=== PATIENT | female | born 1950 | race Caucasian/White ===

== ENCOUNTER 2024-07-17 23:06 | Emergency (ER) | payer MEDICARE, SELFPAY ==
[2024-07-17 23:10] VITALS: BP 122/48
[2024-07-17 23:24] VITALS: BP 122/48
[2024-07-18 00:25] LABS: ALT (SGPT) 59 U/L (0-35); AST (SGOT) 50 U/L (14-36); Albumin 3.9 g/dl (3.5-5.0); Alkaline Phosphatase 162 U/L (38-126); Blood Urea Nitrogen 46 mg/dl (7-17); Calcium 9.8 mg/dl (8.4-10.2); Carbon Dioxide 25 mmol/L (22-30); Chloride 102 mmol/L (98-107); Glucose 100 mg/dl (70-99); Potassium 4.1 mmol/L (3.5-5.1); Sodium 141 mmol/L (135-145); Total Bilirubin 0.8 mg/dl (0.2-1.3); Total Protein 6.4 g/dl (6.3-8.2); eGFR > 60.00
[2024-07-18 00:33] LABS: % Basophils 0.5 % (0-2); % Eosinophils 8.1 % (0-6); % Immature Granulocytes 0.7 % (0-0.5); % Lymphocytes 6.8 % (20.5-51.1); % Monocytes 9.3 % (1.7-9.3); % Neutrophils 74.6 % (42.2-75.2); Absolute Basophils 0.1 10^3/uL (0-0.2); Absolute Eosinophils 0.9 10^3/uL (0-0.7); Absolute Immature Granulocytes 0.1 10^3/uL (0-0.05); Absolute Lymphocytes 0.8 10^3/uL (1.2-3.4); Absolute Neutrophils 8.3 10^3/uL (1.4-6.5); Hematocrit 33.3 % (37.0-47.0); Hemoglobin 10.9 g/dL (12.0-16.0); Mean Corp Hgb Conc. 32.7 g/dL (33.0-37.0); Mean Corpuscular Hgb 29.9 pg (27.0-31.0); Mean Corpuscular Volume 91.5 fL (81.0-99.0); Nucleated Red Blood Cells % 0 %; Platelet Count 262 10^3/uL (130-400); Red Blood Cell Count 3.64 10^6/uL (4.20-5.40); Red Cell Dist. Width 14.6 % (11.5-14.5); White Blood Cell Count 11.2 10^3/uL (4.8-10.8)
--- NOTE | 2024-07-18 00:43 | ED.GENMED ---
History of Present Illness
General
Chief Complaint: Breathing Problem
Source: patient and family (Son)
Exam Limitations: other (Only able to mouth words)
Time Seen by Provider: 07/17/24 23:49
History of Present Illness
History of Present Illness:
This is a 73 year old female that is brought in by ambulance from [facility] for SOB and anxiety. Son states that the patient was just transferred there today from [place] or [place] after a laryngectomy. States that he meet her there at
10:30am and stayed with her to 4:30pm. States that he left and she was OK. States that she is in a room with 3 other people. States that she then called him at 8:30pm and faced timed her. States that she was concerned about the care and was scarred.
States that he feels that she is dehydrated and that in the past weeks her cognition has changed. Patient states that she is nauseated and has abd pain, vomiting once this morning and diarrhea. States that she feels SOB. Denies any fever, chills,
chest pain, headache, dizziness, urinary burning.
Past History
Past History
ED Past Medical History: Arrthythmia (Atrial fib), COPD and Other (Pancreatic insufficiency, Decreased bariatric motility, )
ED Past Surgical History: Appendectomy, Cardiac (Pacemaker) and Other (Laryngectomy, vascular stent ?, J-G tube, laryngectomy neck fistula)
Social History
Tobacco: Former smoker
Alcohol: Occasional
Personal:
Living: halfway
Review of Systems
Review of Systems
All Other Systems: ROS reviewed and negative except as documented in HPI and ROS
Constitutional: Reports no symptoms; Denies fever or chills
EENT: Reports no symptoms
Respiratory: Reports trouble breathing; Denies cough
Cardiac: Denies chest pain
ABD/GI: Reports abdominal pain, nausea, vomiting and diarrhea
: Reports no symptoms; Denies dysuria, frequency or urgency
Musculoskeletal: Reports no symptoms
Skin: Reports no symptoms
Neurological: Reports other (Son feels change in cognition); Denies dizzy or headache
Psychiatric: Reports no symptoms
Phy Exam
General Physical Exam
General Presentation: no apparent distress
General age: appears stated age
General Skin: warm and dry
General Habitus: elderly
General Mental: alert
General Hydration: dry mucous membranes
ENT Exam
ENT Exam: TM's normal, neck supple and tracheostomy
Eye Exam
Eye Exam: EOMI
Cardiovascular Exam
Cardiovascular Exam: regular rate/rhythm, no edema and normal peripheral pulses
Pulmonary Exam
Pulmonary Exam: no respiratory distress, no rales, chest non tender, no crackles, no rhonchi, no wheezing and decreased breath sounds
Gastrointestinal Exam
Gastrointestinal Exam: normal bowel sounds, soft, no organomegaly, no pulsatile mass, non distended and tender (Slight upper abd tenderness with palpation)
Musculoskeletal Exam
Musculoskeletal Exam: full ROM and no edema
Skin Exam
Skin Exam: normal color, warm/dry, no rash and no petechia
Psychiatric Exam
Psychiatric Exam: normal mood/affect
Scores
Heart Failure Risk
Heart Failure Risk Score: Not Applicable
Course
Orders/Labs/Results
Orders:
Orders
07/18/24 00:01
EKG [Electrocardiogram (*1)] Urgent
Reason for Study: Fatigue / Weakness
07/18/24 00:02
EKG- Treatment ONCE
07/18/24 00:04
Complete Blood Count/With Diff Urgent
Comprehensive Metabolic Panel Urgent
07/18/24 00:25
CT Head W/o Iv Contrast Urgent
Comment:
Reason For Exam: COGNITIVE CHANGES,
0.9% Sodium Chloride 1000 ml [Nss] 1,000 ml IV BOLUS
07/18/24 00:26
Ondansetron Injectable [Zofran] 4 mg IV NOW STA
CR Chest - 2 Views Urgent
Comment:
Reason For Exam: sob
07/18/24 02:14
Urinalysis Reflex To Culture Urgent
Date Specimen was Collected: 07/18/24
Time Specimen was Collected: 02:13
Urine Microscopic Reflex Cult Urgent
Urine Culture Urgent
DALE Source: U
Specimen Description:
Date Specimen was Collected: 07/18/24
Time Specimen was Collected: 02:13
Abnormal Lab Results
07/18/24 07/18/24
00:04 02:14
WBC 11.2 H 10^3/uL
(4.8-10.8)
RBC 3.64 L 10^6/uL
(4.20-5.40)
Hgb 10.9 L g/dL
(12.0-16.0)
Hct 33.3 L %
(37.0-47.0)
MCHC 32.7 L g/dL
(33.0-37.0)
RDW 14.6 H %
(11.5-14.5)
MPV 13.0 H fL
(7.4-10.4)
Abs Immat Gran (auto) 0.1 H 10^3/uL
(0-0.05)
Absolute Neuts (auto) 8.3 H 10^3/uL
(1.4-6.5)
Absolute Lymphs (auto) 0.8 L 10^3/uL
(1.2-3.4)
Absolute Monos (auto) 1.0 H 10^3/uL
(0.1-0.6)
Absolute Eos (auto) 0.9 H 10^3/uL
(0-0.7)
Immature Gran % 0.7 H %
(0-0.5)
Lymphocytes % 6.8 L %
(20.5-51.1)
Eosinophils % 8.1 H %
(0-6)
BUN 46 H mg/dl
(7-17)
Glucose 100 H mg/dl
(70-99)
AST 50 H U/L
(14-36)
ALT 59 H U/L
(0-35)
Alkaline Phosphatase 162 H U/L
(38-126)
Urine Bilirubin 1+ A
(Negative)
Leukocyte Esterase Rfl Trace A
(Negative)
Urine RBC 3-6 A /HPF
(0-2)
Urine Bacteria (Reflex) Moderate A
(Negative)
07/18/24 00:04
07/18/24 00:04
Slight Leukocytosis, H/H low. Dehydration. Glucose nonfasting. AST/ALT mildly elevated. Alk phos elevation. Urine negative.
Vital Signs
Initial and Last Documented VS:
Initial Vital Signs
Temp Pulse Resp BP Pulse Ox
98.9 F 82 20 122/48 96
07/17/24 23:10 07/17/24 23:10 07/17/24 23:10 07/17/24 23:10 07/17/24 23:10
Last Documented Vital Signs
Temp Pulse Resp BP Pulse Ox
98.9 F 83 19 117/48 95
07/17/24 23:10 07/18/24 02:45 07/18/24 02:45 07/18/24 02:00 07/18/24 02:00
B[employer] And Blocker Aid Labor consulted with Physician
[employer] consulted with physician?: Yes
Name of Physician Consulted: Dr. Toledo
MDM/Problems Addressed
Differential Diagnosis Includes:
Anxiety, Dehydration.
MDM/Problems Addressed:
This is a 73 year old female that comes in with c/o being scarred and dehydrated. Son reviewed recent history and that patient was just place today at [facility]. Patient felt that she did not trust them an was anxious and SOB.
Will check labs, CT head due to concern for Cognitive changes, chest x-ray and give IV fluids.
Back into see patient and son. Explained that her blood work shows dehydration. Patient was given IV fluids. patient CT is negative for any acute process. Urine is negative for infection. Chest x-ray is questionable for a right upper lobe Pneumonia.
Will give patient Doxycycline and have patient follow up with the computer support specialist. Patient to return with any concerns.
Chronic conditions affecting care: Other (G-J tube, bariatric motility issues, )
Acute Exacerbation and/or Progression of Chronic Illness: Other (G-J tube, bariatric motility issues,)
*Radiology
Radiology exam reviewed: preliminary read by ED provider (Chest- Questionable right upper lobe Infiltration. ), radiology read reviewed (CT head night hawk-No acute intracranial fiindings. No evidence of intracranial hemorrhage, mass effect, midline
shift, or extra-axial fluid collection. Cerebral volume loss. There are periventricular and deep white matter hypodensities which are nonspecific but likely related to chronic ) and other (CT cont- chrnic microvascular ischemic disease.
Atherosclerotic vascular disease. Opacified right maxillary sinus. )
*Pulse Oximetry
Patient hypoxic: no
*EKG
Interpreted by ED Provider?: Yes
Heart Rate: 84
Rate: normal
Rhythm: sinus (Questionable WPW , There is a slurred upstroke of QRS, Questionable QRU width, There is a short AL interval. )
[place]: normal axis
Interval: normal interval
QRS Pattern: normal QRS
Ischemia: no ischemia
*Dessert Cup Machine Feeder Interpretation
Rate: normal
Heart Rate: 83
Rhythm: sinus
*Critical Care Note
Total Time (30-74mins, 75-104mins- exclusive of procedures): Not Applicable
ED Attending Note
-
Portions of this chart may have been created with voice recognition software.� Occasional wrong word or��sound alike� substitutions may have occurred due to the inherent limitations of voice recognition software.
Discharge Plan
Departure
Patient Disposition: [facility]/SNF
Date of Disposition: 07/18/24
Time of Disposition: 03:25
Patient with high blood pressure during this ER visit?: No
Condition: Good
Covid-19: Not Applicable
Discharge Problem:
Anxiety, questionable right upper lobe Pneumonia
Instructions: Pneumonia, Adult (DC), Anxiety, Adult ED
Prescriptions:
New
doxycycline hyclate 100 mg tablet
100 mg PO BID Qty: 13 0RF
Rx Instructions:
Dissolve in 20ml water and let sit for 10min and crush
No Action
acetaminophen 325 mg Tablet
650 mg PO Q6H PRN (Reason: temp > 101 or pain)
albuterol sulfate 2.5 mg /3 mL (0.083 %) Solution For Nebulization
2.5 mg INHALATION Q4H PRN (Reason: wheezing)
albuterol sulfate 2.5 mg /3 mL (0.083 %) Solution For Nebulization
2.5 mg INHALATION QID
allopurinol 100 mg Tablet
100 mg DAILY
bisacodyl 10 mg Suppository
10 mg AL DAILY PRN (Reason: constipation if no results from mom)
budesonide 0.5 mg/2 mL Suspension For Nebulization
0.5 mg INHALATION Q12H
Activity Restrictions/Additional Instructions:
As discussed, your blood work shows that you are dehydrated. You have been given IV fluids here. Please increase patient's water intake daily. Her white blood cell count is slightly elevated. There is a question of a right upper lobe pneumonia but
there is not consolidation. Patient has been given Doxycycline to cover this with her first dose being given here and a prescription has been sent with patient. Please place the table in 20ml water and let sit for 10 min and then crush. Follow up
with the consumer relations specialist for further evaluation. IF PATIENT HAS FEVER, HYPOXIA OR ANY OTHER CONCERNS PLEASE RETURN TO THE EMERGENCY ROOM .
Interventions
Interventions:
*Risk Screen - Suicide Last Done: 07/17/24 23:20
*General Assessment Last Done: 07/17/24 23:10
*Neglect/Abuse Screening Last Done: 07/17/24 23:10
ED- Fall Risk Assessment Last Done: 07/17/24 23:10
*ED COVID-19 Vaccine History Last Done: 07/17/24 23:10
ED- Cardiac Assessment Last Done: 07/17/24 23:20
ED- Pulmonary Assessment Last Done: 07/17/24 23:20
Discharge Date and Time
Print Language: MACEDONIAN
[2024-07-18 01:05] VITALS: BP 111/68
[2024-07-18] MEDS: NSS 1000 IV (01:10)
[2024-07-18] MEDS: ZOFRAN 4 MG IV (01:15)
[2024-07-18 02:00] VITALS: BP 117/48
[2024-07-18 02:22] LABS: Urine Albumin Negative (Neg - Trace); Urine Bilirubin 1+ (Negative); Urine Character Clear (Clear); Urine Color Yellow; Urine Glucose Negative (Negative); Urine Ketone Negative (Negative); Urine Leukocyte Trace (Negative); Urine Nitrite Negative (Negative); Urine Occult Blood Negative (Negative); Urine Urobilinogen Negative (Neg - 1+)
[2024-07-18 03:00] VITALS: BP 124/45
[2024-07-18 03:14] LABS: Urine Hyaline Cast >15 /LPF (0-2); Urine Squamous Cell >30 /LPF (Few)
[2024-07-18 03:15] LABS: Urine Bacteria Moderate (Negative)
[2024-07-18 04:40] VITALS: BP 112/52
[2024-07-18] MEDS: VIBRAMYCIN 100 MG TUBE (04:50)
== END 2024-07-18 04:45 ==
LOC: EMR 23:06
PROVIDERS: Clinical Nurse Specialist Family Health; EMERGENCY PHYSICIAN Emergency Medicine; FAMILY PHYSICIAN Internal Medicine
DX: F41.9 Anxiety disorder, unspecified (principal); R06.02 Shortness of breath; E86.0 Dehydration
CPT/HCPCS: 99285; 96374; 96361; 70450; 71046; 80053; 81003; 81015; 85025; 87086; 93005

== ENCOUNTER 2024-10-14 12:02 | Inpatient (IN) | payer MEDICARE, OTHER, SELFPAY ==
[2024-10-14] VITALS (17 sets, daily range): BP systolic 106–132; BP diastolic 44–108
--- NOTE | 2024-10-14 07:44 | ED.GENMED ---
History of Present Illness
<KELLIE Rudolph - Last Filed: 10/14/24 13:15>
General
Chief Complaint: Breathing Problem
Source: patient
Exam Limitations: none
Time Seen by Provider: 10/14/24 07:38
Nursing documentation reviewed up to this point in time: agreed with
History of Present Illness
History of Present Illness:
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 She communicates via an iPad and has a tracheostomy. She reports she was able to
swallow her pills drink and eat however 2 days ago she started to have difficulty doing so. She also feels some shortness of breath when she lays down. She reports she was up all last night because of symptoms. Also she has been having some
bloody sputum from her tracheostomy site.
She did not have anything get stuck while eating or drinking and denies any choking episodes. She is not short of breath now. But she does feel like it is harder to swallow.
She is followed by the [facility] Dr. Gianluca Mckeon is her surgeon. She last had radiation 3 weeks ago and completed treatment.
Past History
<KELLIE Rudolph - Last Filed: 10/14/24 13:15>
Past History
ED Past Medical History: Arrthythmia (Atrial fib), COPD and Other (Pancreatic insufficiency, Decreased bariatric motility, )
ED Past Surgical History: Appendectomy, Cardiac (Pacemaker) and Other (Laryngectomy, vascular stent ?, J-G tube, laryngectomy neck fistula)
Social History
Tobacco: Former smoker
Alcohol: Occasional
Personal:
Living: senior living
Phy Exam
<KELLIE Rudolph - Last Filed: 10/14/24 13:15>
General Physical Exam
General Presentation: no apparent distress
General age: appears stated age
General Skin: warm and dry
General Habitus: normal
General Mental: alert
General Hydration: appears well hydrated
ENT Exam
ENT Exam: tracheostomy (Open tracheostomy stoma with small Linder dried blood around stoma)
Cardiovascular Exam
Cardiovascular Exam: regular rate/rhythm, no murmur and normal peripheral pulses
Pulmonary Exam
Pulmonary Exam: lungs clear and no respiratory distress
Neurological Exam
Neurological Exam: alert and oriented x3
Musculoskeletal Exam
Musculoskeletal Exam: full ROM
Skin Exam
Skin Exam: normal color and warm/dry
Psychiatric Exam
Psychiatric Exam: normal mood/affect
Scores
<KELLIE Rudolph - Last Filed: 10/14/24 13:15>
Heart Failure Risk
Heart Failure Risk Score: Not Applicable
Course
<KELLIE Rudolph - Last Filed: 10/14/24 13:15>
Orders/Labs/Results
Orders:
Orders
10/14/24 07:44
Electrocardiogram (*1) Urgent
Reason for Study: Shortness of Breath
EKG- Treatment ONCE
10/14/24 07:51
Complete Blood Count/With Diff Urgent
Comprehensive Metabolic Panel Urgent
NT-proBNP Urgent
Troponin I Urgent
10/14/24 08:22
Chest [CR Chest - 2 Views ] Urgent
Comment:
Reason For Exam: dyspahgia
10/14/24 08:23
Neck Soft Tissue [CR Soft Tissue Neck ] Urgent
Comment:
Reason For Exam: dysphaia
10/14/24 09:13
Dexamethasone Sod Phosphate [Decadron] 10 mg IV NOW STA
10/14/24 09:33
LevoFLOXacin 500 MG/100 ML [Levaquin] 500 mg in 100 ml IV NOW
10/14/24 09:34
Albuterol Nebs [Ventolin Nebules] 2.5 mg INH R NOW STA
10/14/24 09:40
COVID-19 Antigen Urgent
Source: Nasal Swab
Influenza A+B Rapid Molecular Urgent
DALE Source: Nasal Swab
Specimen Description:
10/14/24 11:42
Admit/Transfer Patient As Directed
Co-Sign Provider:
Level of Care: Inpatient admission
Assign to:: Telemetry
Physician / Group: raymon toscano
Diagnosis: PNA, dysphagia
Reason for Telemetry: Medication for Arrhythmia
Date to Stop Telemetry: 10/16/24
Time to Stop Telemetry: 11:00
Reason for Hospitalization: PNA, dysphagia
Expected length of stay greater than two midnights?: Yes
ELOS- Estimated Length of Stay in days: 2
I certify the patient meets the requirements for IP care: Yes
MetroNIDAZOLE 500 MG/100 ML [Flagyl 500 mg] 100 ml IV NOW
10/14/24 11:43
PRN Pain Medication Management As Directed
May give lesser potent ordered pain med per pt: Yes
preference::
Protocol:: Medication orders for pain may be administered in a
manner that supports deferring to patient preference
when the pt is:
- Requesting an ordered lesser potent pain medication.
Least to most potent pain medications are defined
as: acetaminophen < NSAID < tramadol < opioids
(morphine, oxycodone, hydromorphone).
- Requesting a lesser dose of the same medication IF
ORDERED.
- Requesting a less intrusive route of administration
if both routes are prescribed by the provider (PO <
IV).
10/14/24 11:44
Code Status As Directed
Resuscitation Status: Do not resuscitate
Reached after discussion with pt or family/Healthcare POA: Yes
10/14/24 11:46
DNR Bracelet Application ONCE
10/16/24 11:00
DC Protocol for Telemetry ONCE
Abnormal Lab Results
10/14/24
07:51
RBC 3.63 L 10^6/uL
(4.20-5.40)
Hgb 10.8 L g/dL
(12.0-16.0)
Hct 33.5 L %
(37.0-47.0)
MCHC 32.2 L g/dL
(33.0-37.0)
RDW 14.9 H %
(11.5-14.5)
MPV 12.3 H fL
(7.4-10.4)
Absolute Neuts (auto) 7.9 H 10^3/uL
(1.4-6.5)
Absolute Lymphs (auto) 0.4 L 10^3/uL
(1.2-3.4)
Neutrophils % 87.3 H %
(42.2-75.2)
Lymphocytes % 4.4 L %
(20.5-51.1)
Glucose 116 H mg/dl
(70-99)
Troponin I 0.070 H* ng/ml
10/14/24 07:51
10/14/24 07:51
Vital Signs
Initial and Last Documented VS:
Initial Vital Signs
Pulse Resp Pulse Ox
70 17 92
10/14/24 07:43 10/14/24 07:43 10/14/24 07:43
Last Documented Vital Signs
Temp Pulse Resp BP Pulse Ox
98.5 F 91 19 124/58 93
10/14/24 07:45 10/14/24 11:00 10/14/24 11:00 10/14/24 13:00 10/14/24 12:05
Hydraulic Engineer consulted with Physician
Hydraulic Engineer consulted with physician?: Yes
Name of Physician Consulted: Windy
<Víctor Collins DO - Last Filed: 10/14/24 09:21>
Orders/Labs/Results
Orders:
Orders
10/14/24 07:44
Electrocardiogram (*1) Urgent
Reason for Study: Shortness of Breath
EKG- Treatment ONCE
10/14/24 07:51
Complete Blood Count/With Diff Urgent
Comprehensive Metabolic Panel Urgent
NT-proBNP Urgent
Troponin I Urgent
10/14/24 08:22
Chest [CR Chest - 2 Views ] Urgent
Comment:
Reason For Exam: dyspahgia
10/14/24 08:23
Neck Soft Tissue [CR Soft Tissue Neck ] Urgent
Comment:
Reason For Exam: dysphaia
10/14/24 09:13
Dexamethasone Sod Phosphate [Decadron] 10 mg IV NOW STA
10/14/24 09:33
LevoFLOXacin 500 MG/100 ML [Levaquin] 500 mg in 100 ml IV NOW
10/14/24 09:34
Albuterol Nebs [Ventolin Nebules] 2.5 mg INH R NOW STA
10/14/24 09:40
COVID-19 Antigen Urgent
Source: Nasal Swab
Influenza A+B Rapid Molecular Urgent
DALE Source: Nasal Swab
Specimen Description:
10/14/24 11:42
Admit/Transfer Patient As Directed
Co-Sign Provider:
Level of Care: Inpatient admission
Assign to:: Telemetry
Physician / Group: raymon toscano
Diagnosis: PNA, dysphagia
Reason for Telemetry: Medication for Arrhythmia
Date to Stop Telemetry: 10/16/24
Time to Stop Telemetry: 11:00
Reason for Hospitalization: PNA, dysphagia
Expected length of stay greater than two midnights?: Yes
ELOS- Estimated Length of Stay in days: 2
I certify the patient meets the requirements for IP care: Yes
MetroNIDAZOLE 500 MG/100 ML [Flagyl 500 mg] 100 ml IV NOW
10/14/24 11:43
PRN Pain Medication Management As Directed
May give lesser potent ordered pain med per pt: Yes
preference::
Protocol:: Medication orders for pain may be administered in a
manner that supports deferring to patient preference
when the pt is:
- Requesting an ordered lesser potent pain medication.
Least to most potent pain medications are defined
as: acetaminophen < NSAID < tramadol < opioids
(morphine, oxycodone, hydromorphone).
- Requesting a lesser dose of the same medication IF
ORDERED.
- Requesting a less intrusive route of administration
if both routes are prescribed by the provider (PO <
IV).
10/14/24 11:44
Code Status As Directed
Resuscitation Status: Do not resuscitate
Reached after discussion with pt or family/Healthcare POA: Yes
10/14/24 11:46
DNR Bracelet Application ONCE
10/16/24 11:00
DC Protocol for Telemetry ONCE
Abnormal Lab Results
10/14/24
07:51
RBC 3.63 L 10^6/uL
(4.20-5.40)
Hgb 10.8 L g/dL
(12.0-16.0)
Hct 33.5 L %
(37.0-47.0)
MCHC 32.2 L g/dL
(33.0-37.0)
RDW 14.9 H %
(11.5-14.5)
MPV 12.3 H fL
(7.4-10.4)
Absolute Neuts (auto) 7.9 H 10^3/uL
(1.4-6.5)
Absolute Lymphs (auto) 0.4 L 10^3/uL
(1.2-3.4)
Neutrophils % 87.3 H %
(42.2-75.2)
Lymphocytes % 4.4 L %
(20.5-51.1)
Glucose 116 H mg/dl
(70-99)
Troponin I 0.070 H* ng/ml
10/14/24 07:51
10/14/24 07:51
Vital Signs
Initial and Last Documented VS:
Initial Vital Signs
Pulse Resp Pulse Ox
70 17 92
10/14/24 07:43 10/14/24 07:43 10/14/24 07:43
Last Documented Vital Signs
Temp Pulse Resp BP Pulse Ox
98.5 F 91 19 124/58 93
10/14/24 07:45 10/14/24 11:00 10/14/24 11:00 10/14/24 13:00 10/14/24 12:05
<KELLIE Rudolph - Last Filed: 10/14/24 13:15>
MDM/Problems Addressed
Differential Diagnosis Includes:
Not limited to dysphagia, pneumonia, bronchitis, tracheitis
MDM/Problems Addressed:
Patient is a 73-year-old female status post laryngectomy recently completed radiation several weeks ago presents for dysphagia. She has had issues swallowing tolerating her pills and eating drinking for the past several days. She has been using
her feeding tube. She has had some shortness of breath at night noticed bloody sputum from her tracheostomy. She presents awake alert no acute distress lungs are clear there is small amount of dried blood in her tracheostomy site. She is not
drooling she has tongue secretions well. She denies any fevers and is afebrile, white count 9 hemoglobin stable at 10.8 normal renal function. Troponin is elevated however no complaints of chest pain and no acute findings on EKG.
chest x-ray does show right upper lobe opacity. With patient's symptoms and blood tinged from tracheostomy along with x-ray findings will admit for tracheitis, possible pneumonia. Patient was eval by ED physician IV antibiotics ordered. Patient
is stable afebrile here in the ER albuterol neb was also given for symptoms.
.
Chronic conditions affecting care:
Laryngectomy
<KELLIE Rudolph - Last Filed: 10/14/24 13:15>
*Radiology
Radiology exam reviewed: radiology read reviewed
*Pulse Oximetry
Patient hypoxic: yes (mildly hypoxic )
*Critical Care Note
Total Time (30-74mins, 75-104mins- exclusive of procedures): Not Applicable
ED Attending Note
<KELLIE Rudolph - Last Filed: 10/14/24 13:15>
-
Portions of this chart may have been created with voice recognition software.� Occasional wrong word or��sound alike� substitutions may have occurred due to the inherent limitations of voice recognition software.
<Víctor Collins DO - Last Filed: 10/14/24 09:21>
ED Attending Note
Patient seen and examined by attending physician: Yes
I performed the substantive portion of visit, reviewed & personally made and approve the management plan that is documented in note by myself or VENESSA.: Yes
Discharge Plan
Departure
Patient Disposition: Admit
Date of Disposition: 10/14/24
Time of Disposition: 09:42
Admit to: Med/Surg
Admit to doctor: hospitalist
Presentation/result/management discussed w/ accepting MD/DO: Hospitalist
Patient with high blood pressure during this ER visit?: Yes
Condition: Fair
Covid-19: Not Applicable
Discharge Problem:
Acute tracheitis, Pneumonia
Interventions
Interventions:
*Risk Screen - Suicide Last Done: 10/14/24 07:48
*General Assessment Last Done: 10/14/24 07:48
*Neglect/Abuse Screening Last Done: 10/14/24 07:48
*ED COVID-19 Vaccine History Last Done: 10/14/24 07:48
ED- Cardiac Assessment Last Done: 10/14/24 07:49
ED- Pulmonary Assessment Last Done: 10/14/24 07:49
[2024-10-14 08:04] LABS: % Basophils 0.6 % (0-2); % Eosinophils 1.3 % (0-6); % Immature Granulocytes 0.3 % (0-0.5); % Lymphocytes 4.4 % (20.5-51.1); % Monocytes 6.1 % (1.7-9.3); % Neutrophils 87.3 % (42.2-75.2); Absolute Basophils 0.1 10^3/uL (0-0.2); Absolute Eosinophils 0.1 10^3/uL (0-0.7); Absolute Lymphocytes 0.4 10^3/uL (1.2-3.4); Absolute Monocytes 0.6 10^3/uL (0.1-0.6); Absolute Neutrophils 7.9 10^3/uL (1.4-6.5); Hematocrit 33.5 % (37.0-47.0); Hemoglobin 10.8 g/dL (12.0-16.0); Mean Corp Hgb Conc. 32.2 g/dL (33.0-37.0); Mean Corpuscular Hgb 29.8 pg (27.0-31.0); Mean Corpuscular Volume 92.3 fL (81.0-99.0); Mean Platelet Volume 12.3 fL (7.4-10.4); Nucleated Red Blood Cells % 0 %; Platelet Count 249 10^3/uL (130-400); Red Blood Cell Count 3.63 10^6/uL (4.20-5.40); Red Cell Dist. Width 14.9 % (11.5-14.5)
[2024-10-14 08:18] LABS: ALT (SGPT) 17 U/L (0-35); AST (SGOT) 23 U/L (14-36); Albumin 4.1 g/dl (3.5-5.0); Alkaline Phosphatase 93 U/L (38-126); Blood Urea Nitrogen 16 mg/dl (7-17); Calcium 9.8 mg/dl (8.4-10.2); Carbon Dioxide 28 mmol/L (22-30); Chloride 101 mmol/L (98-107); Glucose 116 mg/dl (70-99); Potassium 4.2 mmol/L (3.5-5.1); Sodium 139 mmol/L (135-145); Total Bilirubin 0.4 mg/dl (0.2-1.3); Total Protein 6.5 g/dl (6.3-8.2); eGFR > 60.00
[2024-10-14 08:34] LABS: NT-proBNP 2740 pg/ml
[2024-10-14] MEDS: DECADRON 10 MG IV (09:19)
[2024-10-14] MEDS: VENTOLIN NEBULES 2.5 MG INH (09:42)
[2024-10-14] MEDS: LEVAQUIN 100 IV (09:42)
[2024-10-14 10:02] LABS: COVID-19 Antigen Negative (Negative)
--- NOTE | 2024-10-14 11:25 | HPS.HSE ---
Family Physician
-
Family Physician: Erick Schwarz
Chief Complaint
-
Shortness of breath, dysphagia
History of Present Illness
73-year-old female with a past history of atrial fibrillation, COPD, pancreatic insufficiency, and laryngeal cancer status post laryngectomy & radiation presents with a 2-day history of shortness of breath and dysphagia. Although patient has a G-J
tube, she does eat a chopped diet. 2 days ago she started having problems swallowing her food and pills. She has shortness of breath with lying down. She is coughing, bringing up blood from her trach site. Denies nausea, vomiting, abdominal
pain. No fever, no chest pain. No abdominal pain. No dysuria. No black or bloody stools. She is followed by the [facility], Dr. Gianluca Mckeon is her surgeon. She last had radiation 3 weeks ago and completed treatment.
Medical History
Past Medical History
Past Medical History: Reports Other
Additional Past Medical History:
Atrial fibrillation
COPD
CHF
Pancreatic insufficiency
Laryngeal cancer status post laryngectomy and radiation treatment
Past Surgical History: Reports Other
Additional Past Surgical History:
G-J tube
Laryngectomy
Appendectomy
Permanent pacemaker placement
Social History
Tobacco: Former Smoker
Alcohol: Occasional
Drug: None
Personal: Single
Living: Alone
Family History
Family History: Not pertinent
Allergies / Home Medications
Allergies reflects when Allergies were last updated in [facility].
Home Medications with original date entered in [facility]
Allergy/Medication List:
Allergies
Allergy/AdvReac Type Severity Reaction Status Date / Time
latex Allergy Unknown Verified 07/17/24 23:23
Penicillins Allergy Vomiting Verified 07/17/24 23:23
tetanus toxoid, adsorbed Allergy Unknown Verified 07/18/24 00:56
antihistamines Allergy Unknown Uncoded 10/09/24 00:56
chlorpheniramine typ
Home Medications Table - record
�Medication �Instructions �Recorded �Confirmed
allopurinol 100 mg tablet 100 mg PO DAILY 10/14/24 10/14/24
budesonide 0.5 mg/2 mL suspension 0.5 mg inhalation R BIDPRN PRN sob 10/14/24 10/14/24
for nebulization
clopidogrel 75 mg tablet (Plavix) 75 mg PO QPM 10/14/24 10/14/24
food supplemt, lactose-reduced 1 ea PO QPM 10/14/24 10/14/24
furosemide 20 mg tablet (Lasix) 20 mg PO DAILY 10/14/24 10/14/24
hydroxychloroquine 200 mg tablet 200 mg PO BID 10/14/24 10/14/24
(Plaquenil)
lansoprazole 15 mg capsule,delayed 30 mg feeding tube DAILY 10/14/24 10/14/24
release
metoprolol tartrate 25 mg tablet 25 mg PO BID 10/14/24 10/14/24
revefenacin 175 mcg/3 mL solution 175 mcg inhalation R DAILYPRN PRN 10/14/24 10/14/24
for nebulization (Yupelri) sob
sertraline 25 mg tablet 50 mg PO DAILY 10/14/24 10/14/24
spironolactone 25 mg tablet 25 mg PO DAILY 10/14/24 10/14/24
Review of Systems
-
A 12 point ROS was completed and negative except as noted: Yes
Physical Exam
Vital Signs
Vital Signs
Temp Pulse Resp BP Pulse Ox
98.5 F 83 16 106/87 92
10/14/24 07:45 10/14/24 10:04 10/14/24 10:04 10/14/24 10:04 10/14/24 10:04
Physical Exam
General: No Apparent Distress
HEENT: NormoCephalic, Anicteric, Moist mucous membranes, Atraumatic and Other (Open tracheostomy stoma with small Linder dried blood around stoma)
Respiratory: Clear
Cardiac: S1/S2 and Regular Rhythm
GI: Soft, Non Tender, Non Distended and Other (G-J tube noted)
Musculoskeletal: No Clubbing, No Cyanosis and No Edema
Skin: Warm and Dry
Neuro: Awake, Alert and Oriented
Psych: Calm
Laboratory Results
-
10/14/24 07:51
10/14/24 07:51
Laboratory Results
Total Bilirubin 0.4 mg/dl (0.2-1.3) 10/14/24 07:51
AST 23 U/L (14-36) 10/14/24 07:51
ALT 17 U/L (0-35) 10/14/24 07:51
Alkaline Phosphatase 93 U/L (38-126) 10/14/24 07:51
Troponin I 0.070 ng/ml H* 10/14/24 07:51
Impression/Plan
-
HPI: 73-year-old female with a past history of atrial fibrillation, COPD, pancreatic insufficiency, and laryngeal cancer status post laryngectomy & radiation presents with a 2-day history of shortness of breath and dysphagia. Although patient has a
G-J tube, she does eat a chopped diet. 2 days ago she started having problems swallowing her food and pills. She has shortness of breath with lying down. She is coughing, bringing up blood from her trach site. Denies nausea, vomiting, abdominal
pain. No fever, no chest pain. No abdominal pain. No dysuria. No black or bloody stools. She is followed by the [facility], Dr. Gianluca Mckeon is her surgeon. She last had radiation 3 weeks ago and completed treatment.
#Acute hypoxic respiratory insufficiency
#Pneumonia, suspect aspiration
COVID and flu negative
Status post levofloxacin in the ED
Treat with Rocephin, Flagyl
Currently requiring 4 L of oxygen, wean as tolerated
She does not wear oxygen at home
#Dysphagia
Cleared by SPL for pur�ed diet with thin liquids
Hold Lasix and spironolactone until oral intake
#Laryngeal cancer status post laryngectomy and radiation treatment 3 weeks ago
#Mild bleeding from trach stoma
Followed by the [facility], Dr. Gianluca Mckeon is her surgeon
Status post IV dexamethasone in the ER
Hold further steroids for now, consult ENT, consult wound care
#Paroxysmal atrial fibrillation
Continue Plavix, metoprolol tartrate 25 mg twice a day
#Chronic heart failure, unknown type
Hold Lasix and Aldactone for now secondary to dysphagia
#Elevated troponin
Suspect nonischemic myocardial injury from pneumonia and hypoxia
#GERD
Continue PPI
#COPD
Continue home bronchodilators
#Anxiety/depression
Continue SSRI
DVT prophylaxis�subcu Lovenox
DNR
Total time spent to see the patient on the floor, examine the patient, review data and lab results, discuss treatment plan with patient, nursing staff around 77 minutes.
[2024-10-14] MEDS: FLAGYL 500 MG 100 IV ×2 (11:49→20:53)
[2024-10-14] MEDS: ROCEPHIN 1000 MG IV (15:37)
[2024-10-14] MEDS: STERILE WATER FOR INJECTION 10 ML IV (15:37)
--- NOTE | 2024-10-14 15:48 | PTOTSP ---
Speech Pathology
Clinical Swallow Evaluation
73F with admission for SOB and difficulty swallowing p/w acute on chronic oropharyngeal dysphagia. Regurgitation of thin liquids and puree observed at bedside this date. Aspiration risk is high (top-down and bottom-up) 2/2 current concern for PNA,
pt c/o difficulty swallowing, odynophagia, hx of laryngeal ca s/p RXT (completed 3 weeks ago) & laryngectomy, and tenuous respiratory status.
Recommend:
1. Trial puree solids (IDDSI 4) and thin liquids (IDDSI 0)
2. Meds crushed in puree
3. Safe swallowing strategies: small bites, single sips, slow rate, upright with PO
4. Reflux precautions
5. MAKE NPO AND AWAIT SECONDS INSPECTOR RE-EVAL IF S/S CONCERNING FOR ASPIRATION ARISE
6. SECONDS INSPECTOR service to follow up re: advance diet as able, consider video swallow study if difficulties persist
--- NOTE | 2024-10-14 16:20 | EDRN ---
Pt's cousin Annabella's phone number [phone]
--- NOTE | 2024-10-14 16:51 | CON.MD ---
Consultation - Medical
-
laryngeal cancer, bleeding from stoma
dysphagia
73 yo s/p laryngectomy 06/02 at [facility], completed XRT 3 weeks ago
Presents c SOB, coughing up blood and thick secretions from stoma
Has G-J tube
PE - Pt in no respiratory distress
Afebrile
Stoma - mild irritation R side of stoma
Endoscopy of trachea shows few spots of blood, no lesions, no obstruction, no erosion or exposed vessels
A/P Tracheitis, poss pneumonia
No significant bleeding
Humidified oxygen, antibx for possible pneumonia
Airway patent and stable
Dysphagia not unexpected given recent XRT, pt has feeding tube, pureed po as caroline
[2024-10-14] MEDS: PLAVIX 75 MG PO (18:10)
[2024-10-14] MEDS: LOPRESSOR 25 MG PO (20:55)
[2024-10-14] MEDS: PLAQUENIL 200 MG PO (20:55)
[2024-10-15] VITALS (21 sets, daily range): BP systolic 105–141; BP diastolic 42–122; BMI 24.5; BMI 20.9
[2024-10-15] MEDS: FLAGYL 500 MG 100 IV (04:33)
--- NOTE | 2024-10-15 04:49 | EDRN ---
As per Respiratory Therapist pt is a Laryngectomy and can�t be intubated via mouth. Pt would need a trach placed to manage airway.
--- NOTE | 2024-10-15 05:57 | W.PN.HOSP.TC ---
Today's Communication/Plan
-
IV abx switched to PO doxycycline
supplemental Tube Feeds Jevity
PT/OT appreciated no needs
speech eval appreciated
Chair Frame Builder bert requested
Assessment / Plan
Assessment / Plan
Physical Exam
General: No Apparent Distress
HEENT: NormoCephalic, Anicteric, Moist mucous membranes, Open tracheostomy stoma with small amount dried blood around stoma
Respiratory: Clear
Cardiac: S1/S2 and Regular Rhythm
GI: Soft, Non Tender, Non Distended, G-J tube present
Musculoskeletal: No Clubbing, No Cyanosis and No Edema
Skin: Warm and Dry
Neuro: Awake, Alert and Oriented
Psych: Calm
HPI: 73-year-old female with a past history of atrial fibrillation, COPD, pancreatic insufficiency, and laryngeal cancer status post laryngectomy & radiation presents with a 2-day history of shortness of breath and dysphagia. Although patient has a
G-J tube, she does eat a chopped diet. 2 days ago she started having problems swallowing her food and pills. She has shortness of breath with lying down. She is coughing, bringing up blood from her trach site. Denies nausea, vomiting, abdominal
pain. No fever, no chest pain. No abdominal pain. No dysuria. No black or bloody stools. She is followed by the [facility], Dr. Gianluca Mckeon is her surgeon. She last had radiation 3 weeks ago and completed treatment.
#Acute hypoxic respiratory insufficiency
#Pneumonia, suspect aspiration
COVID and flu negative
Status post levofloxacin in the ED
weaned off oxygen supplementation, stable respiratory status on room air
IV Rocephin, Flagyl converted to PO doxycycline
#Dysphagia
Cleared by SPL for pur�ed diet with thin liquids
Hold Lasix and spironolactone with reduced PO intake
on supplemental Tube feeds bedtime Jevity at home (resumed continuous 20 cc/h, box office clerkfabiano noel requested)
#Laryngeal cancer status post laryngectomy and radiation treatment 3 weeks ago
#Mild bleeding from trach stoma
Followed by the [facility], Dr. Gianluca Mckeon is her surgeon
Status post IV dexamethasone in the ER
Hold further steroids for now
consult ENT appreciated
consult wound care appreciated
#Paroxysmal atrial fibrillation
Continue Plavix, metoprolol tartrate 25 mg twice a day
#Chronic heart failure, unknown type
Hold Lasix and Aldactone for now secondary to dysphagia
#Elevated troponin
chest pain free
likely nonischemic myocardial injury from pneumonia and hypoxia
troponin trended flat 0.081
#GERD
Continue PPI
#COPD
Continue home bronchodilators
#Anxiety/depression
Continue SSRI
DVT prophylaxis SCD
DNR
Total time spent to see the patient on the floor, examine the patient, review data and lab results, discuss treatment plan with patient, nursing staff around 50 minutes.
Anticipated Discharge: 24 - 48 hours
Subjective/Interval History
-
Date of Service: October 15, 2024
Reports overall improvement in symptoms, including respiration/shortness of breath. Weaned off oxygen supplementation stable respiratory status on room air. Dysphagia persists resulting in poor oral intake (endorses typically on supplementally
tube feeds Jevity at night).
Objective Data
-
Labs:
Laboratory Results
10/15/24
05:44
WBC Pending
Hgb Pending
Hct Pending
Plt Count Pending
Sodium Pending
Potassium Pending
Chloride Pending
Carbon Dioxide Pending
BUN Pending
Creatinine Pending
Glucose Pending
Calcium Pending
Vital Signs:
Vital Signs
Temp Pulse Resp BP Pulse Ox
98.5 F 69 17 130/66 98
10/14/24 07:45 10/15/24 05:30 10/15/24 05:30 10/15/24 05:00 10/15/24 05:30
[2024-10-15 06:19] LABS: Hematocrit 30.7 % (37.0-47.0); Mean Corp Hgb Conc. 32.6 g/dL (33.0-37.0); Mean Corpuscular Hgb 29.7 pg (27.0-31.0); Mean Corpuscular Volume 91.1 fL (81.0-99.0); Mean Platelet Volume 12.7 fL (7.4-10.4); Platelet Count 234 10^3/uL (130-400); Red Blood Cell Count 3.37 10^6/uL (4.20-5.40); Red Cell Dist. Width 14.8 % (11.5-14.5); White Blood Cell Count 5.8 10^3/uL (4.8-10.8)
[2024-10-15 06:48] LABS: Blood Urea Nitrogen 20 mg/dl (7-17); Calcium 9.7 mg/dl (8.4-10.2); Carbon Dioxide 26 mmol/L (22-30); Chloride 102 mmol/L (98-107); Estimated Creatinine Clearance 47 ml/min; Glucose 84 mg/dl (70-99); Potassium 4.7 mmol/L (3.5-5.1); Sodium 136 mmol/L (135-145); eGFR > 60.00
[2024-10-15] MEDS: ZYLOPRIM 100 MG PO (08:27)
[2024-10-15] MEDS: LOPRESSOR 25 MG PO ×2 (08:27→20:38)
[2024-10-15] MEDS: ZOLOFT 50 MG PO (08:27)
[2024-10-15] MEDS: PREVACID 30 MG TUBE (08:27)
[2024-10-15] MEDS: PLAQUENIL 200 MG PO ×2 (08:27→20:38)
[2024-10-15 11:21] LABS: Troponin I 0.081 ng/ml
--- NOTE | 2024-10-15 12:15 | WOUNDNOTE ---
[facility] RN note: Patient admitted with pneumonia, dysphagia. Patient currently is living with her son and she is current with VN.
See H&P for complete history.
PMH: a fib, COPD, pancreatic insufficiency, laryngeal ca s/p laryngectomy 05/2024 and radiation finished 3 weeks ago, GJ tube, patient eats chopped food.
Wound Location and type/assessment: Patient admitted with: mild MASD and possible yeast rash around feeding tube site. L great and 2nd toe from dropping something on her toe before (denies pain), R medial heel and R medial calf fading bruises from
her spraining her ankle. Sacral crease mild red r/t moisture. Patient wears an incontinent brief/pull up. Skin around neck laryngectomy is intact.
Appetite: on a IDDSI 4-pureed diet.
Pressure redistribution devices in place: ED stretcher. She is ambulatory and moves self in bed. Suggested to ED TOSHIA Meeks to call the bed tech for a hospital bed. She may be discharged tomorrow as per patient.
Plan: Slit gauze changed around feeding tube. Small vieyra yellow exudate on removed drainage sponge. Protective silicone border foam applied to sacrum. Heels off bed with air chair cushion. Instructed patient pressure injury prevention measures and
to take the air chair cushion when discharged.
Confirm local skin care with Dr. Mckeon and discussed with ED TOSHIA Meeks.
Care plan to be updated, will sign off. Call if needed.
[2024-10-15] MEDS: VIBRAMYCIN 100 MG PO ×2 (12:17→20:38)
--- NOTE | 2024-10-15 12:41 | WOUNDNOTE ---
RLE/HEEL (MEDIAL)
--- NOTE | 2024-10-15 12:41 | WOUNDNOTE ---
FEEDING TUBE SITE.
--- NOTE | 2024-10-15 16:21 | PTOTSP ---
Dysphagia Therapy
Cannot determine cause of increased difficulty swallowing bedside. Per ENT note, dysphagia is expected given recent completion of XRT. Consider further imaging as needed per MD if concerned for leak/fistula in patient with total laryngectomy.
Requested dietitian consult to determine if patient with sufficient PO intake and if she may need supplemental nutrition/hydration while experiencing worsened dysphagia.
Recommend:
1. Puree solids (IDDSI 4) and thin liquids (IDDSI 0)
2. Meds crushed in puree
3. Safe swallowing strategies: small bites, single sips, slow rate, upright with PO, alternate sips/bites
4. Reflux precautions
5. Registered dietitian consult
6. Imaging to assess dysphagia and/or rule out leak/fistula as appropriate per MD.
[2024-10-15] MEDS: PLAVIX 75 MG PO (18:04)
--- NOTE | 2024-10-15 19:00 | EDRN ---
Report received, introduced myself ot patient, patient was having some discomfort to her stoma after respiratory suctioned with some minimal bleeding, patient reports that the pain has decreased as well as the blood and thinks was just irritated
from the suctioning, patient also asking about her tube feed states she never got any last night, did see there is an order in for her to get it, spoke with the picking crew supervisor Agueda, who was going to get the feed and pump and deliver to the room she
will be going to so she can get it tonight. I updated patient on the plan for her tube feed and for her to be moved to a room hopefully soon.
--- NOTE | 2024-10-15 20:25 | RESPNOTE ---
pt remains on a 28% trach collar, no suction needed
[2024-10-15] MEDS: DESENEX/MITRAZOL/ZEASORB 1 APPLIC TOPICAL (20:41)
--- NOTE | 2024-10-15 20:56 | EDRN ---
Changed out patients drain sponge around her g-tube and applied powder for her, patient aware they are working on cleaning her room.
[2024-10-15] MEDS: ATIVAN 0.25 MG PO (22:48)
--- NOTE | 2024-10-16 00:52 | PTCARENOTE ---
Patient arrived from the ED via stretcher at approximately 5. Patient ambulated from stretcher to bed - gait steady. AAOx3. VSS as documented. Assessment as documented. Patient w/ laryngectomy - respiratory notified and laryngectomy box at
bedside. Patient oriented to room. Bed in lowest position. Call cisse within reach.
[2024-10-16 03:22] VITALS: BP 123/60
[2024-10-16 05:21] VITALS: BMI 20.8
[2024-10-16 06:00] VITALS: BMI 20.8
[2024-10-16 07:05] VITALS: BP 138/61
--- NOTE | 2024-10-16 07:11 | W.PN.HOSP.TC ---
Today's Communication/Plan
-
patient tentatively accepted for ambulance transfer tomorrow 10/17/24Tue pending bed availability [facility] under ENT service Dr Ramos accepting attending (benefit higher level of care unclear source tracheal bleeding)
CT angio Neck to be done tonight to r/o significant vascular issue (if positive, or if patient acutely worsens, [place] transfer center to be contacted for urgent/expedited transfer- rowan Hay [phone] should also be notified as well)
Shiley trach tube placed by ENT to keep stoma patent in case of bleeding
Morphine 2mg IV Q4H prn for coughing/irritation from trach tube
Ativan IV prn anxiety sleep
continuous pulse ox monitoring (if develops significant resp distress/failure, rapid response should be called to expedite connecting patient to vent, transferring to ICU, and contacting Transfer Center for urgent/expedited transfer- rowan Hay
[phone] should also be notified as well)
Assessment / Plan
Assessment / Plan
Physical Exam
General: No Apparent Distress
HEENT: NormoCephalic, Anicteric, Moist mucous membranes, Open tracheostomy stoma, trach tube present
Respiratory: Clear
Cardiac: S1/S2 and Regular Rhythm
GI: Soft, Non Tender, Non Distended, G-J tube present
Musculoskeletal: No Clubbing, No Cyanosis and No Edema
Skin: Warm and Dry
Neuro: Awake, Alert and Oriented
Psych: Calm
HPI: 73-year-old female with a past history of atrial fibrillation, COPD, pancreatic insufficiency, and laryngeal cancer status post laryngectomy & radiation presents with a 2-day history of shortness of breath and dysphagia. Although patient has a
G-J tube, she does eat a chopped diet. 2 days ago she started having problems swallowing her food and pills. She has shortness of breath with lying down. She is coughing, bringing up blood from her trach site. Denies nausea, vomiting, abdominal
pain. No fever, no chest pain. No abdominal pain. No dysuria. No black or bloody stools. She is followed by the [facility], Dr. Gianluca Mckeon is her surgeon. She last had radiation 3 weeks ago and completed treatment.
#Acute hypoxic respiratory insufficiency
#Pneumonia, suspect aspiration
COVID and flu negative
Status post levofloxacin in the ED
weaned off oxygen supplementation, stable respiratory status on room air
IV Rocephin, Flagyl converted to PO doxycycline, converted back to IV rocephin and flagyl due to concern worsening respiratory status
#Dysphagia
Cleared by SPL for pur�ed diet with thin liquids
Hold Lasix and spironolactone with reduced PO intake
on supplemental Tube feeds bedtime Jevity at home (resumed continuous 20 cc/h, culinary assistant bert appreciated)
Currently tube feeds placed on hold d/t concern possible need for intervention NPO except meds
#Laryngeal cancer status post laryngectomy and radiation treatment 3 weeks ago
#Mild bleeding from trach stoma initally
#[facility] progressive dyspnea dried blood blocking stoma unclear source
Followed by the [facility], Dr. Gianluca Mckeon is her surgeon
Status post IV dexamethasone in the ER
IV Decadron 4mg Q6H started, cont
consult wound care appreciated
consult ENT appreciated significant amount of dried blood was cleared, unclear source of bleeding, possibly pulmonary from pneumonia or tracheal wall, recommended for transfer back to [facility] higher level of care known to ENT surgeons there, accepted
by Dr Ramos (Dr. Gianluca Mckeon's partner)
10/16/24 as per discussion with ENT spa consultant Dr Harrison and [facility] Dr Ramos
-patient tentatively accepted for ambulance transfer tomorrow 10/17/24 Wed pending bed availability
-CT angio Neck to be done tonight to r/o significant vascular issue (if positive, or if patient acutely worsens, [place] transfer center to be contacted for urgent/expedited transfer- rowan Hay [phone] should also be notified as well)
-Shiley trach tube placed by ENT to keep stoma patent in case of bleeding
-Morphine 2mg IV Q4H prn for coughing/irritation from trach tube
-Ativan IV prn anxiety sleep
-continuous pulse ox monitoring
#Paroxysmal atrial fibrillation
Continue Plavix, metoprolol tartrate 25 mg twice a day
#Chronic heart failure, unknown type
Hold Lasix and Aldactone for now secondary to dysphagia/diarrhea weight loss
#Elevated troponin
chest pain free
likely nonischemic myocardial injury from pneumonia and hypoxia
troponin trended flat 0.081
#GERD
Continue PPI
#COPD
Continue home bronchodilators
#Anxiety/depression
Continue SSRI
DVT prophylaxis SCD
DNR
Discussed with patient, nurse, ENT, respiratory therapist, [facility] Dr Ramos, and patient's son RUDDY Hay [phone] who is aware of plan for transfer
Total time spent to see the patient on the floor, examine the patient, review data and lab results, discuss treatment plan with patient, nursing staff around 80 minutes.
Anticipated Discharge: 24 - 48 hours
Subjective/Interval History
-
Date of Service: October 16, 2024
Rapid response earlier in the day d/t shortness of breath. noted wheezing started on steroids. patient later developed worsening shortness of breath, stoma became significantly blocked with dried blood. This was cleared by ENT button grader but
significant concern for tracheal bleeding unclear source. patient was subsequently recommended for transfer to [place] under ENT service, Dr Ramos accepting.
Objective Data
-
Labs:
Laboratory Results
10/16/24
06:17
WBC Pending
Hgb Pending
Hct Pending
Plt Count Pending
Sodium Pending
Potassium Pending
Chloride Pending
Carbon Dioxide Pending
BUN Pending
Creatinine Pending
Glucose Pending
Calcium Pending
Vital Signs:
Vital Signs
Temp Pulse Resp BP Pulse Ox
98.1 F 68 17 123/60 98
10/16/24 03:22 10/16/24 03:22 10/16/24 03:22 10/16/24 03:22 10/16/24 03:22
I&O
10/15/24 10/16/24 10/17/24
06:59 06:59 06:59
Intake Total 510 / 510
Balance 510 / 510
[2024-10-16] MEDS: VENTOLIN NEBULES 2.5 MG INH (08:10)
[2024-10-16] MEDS: PULMICORT 0.5 MG INH (08:10)
[2024-10-16 08:21] LABS: Hemoglobin 10.1 g/dL (12.0-16.0); Mean Corp Hgb Conc. 32.6 g/dL (33.0-37.0); Mean Corpuscular Hgb 29.8 pg (27.0-31.0); Mean Corpuscular Volume 91.4 fL (81.0-99.0); Mean Platelet Volume 12.9 fL (7.4-10.4); Platelet Count 223 10^3/uL (130-400); Red Blood Cell Count 3.39 10^6/uL (4.20-5.40); Red Cell Dist. Width 14.9 % (11.5-14.5); White Blood Cell Count 4.5 10^3/uL (4.8-10.8)
[2024-10-16] MEDS: DECADRON 4 MG IV ×3 (08:38→20:48)
[2024-10-16 08:42] LABS: Blood Urea Nitrogen 20 mg/dl (7-17); Calcium 9.3 mg/dl (8.4-10.2); Carbon Dioxide 24 mmol/L (22-30); Chloride 101 mmol/L (98-107); Estimated Creatinine Clearance 47 ml/min; Glucose 92 mg/dl (70-99); Magnesium 1.9 mg/dl (1.6-2.3); Phosphorus 3.9 mg/dl (2.5-4.5); Potassium 4.2 mmol/L (3.5-5.1); Sodium 136 mmol/L (135-145); eGFR > 60.00
--- NOTE | 2024-10-16 09:30 | PTCARENOTE ---
RR called in, pt having/ C/o of trouble breathing, resp suctioned and breathing treatment given as ordered with no improvement. R:24, vs documented. Md notified and at bedside. Iv Decadron given as ordered. plan of care ongoing. call cisse within
reach.
[2024-10-16] MEDS: PREVACID 30 MG TUBE (09:50)
[2024-10-16] MEDS: PLAQUENIL 200 MG PO ×2 (09:51→21:14)
[2024-10-16] MEDS: DESENEX/MITRAZOL/ZEASORB 1 APPLIC TOPICAL ×2 (09:53→20:58)
[2024-10-16] MEDS: VIBRAMYCIN PO (10:03)
[2024-10-16] MEDS: ZYLOPRIM PO (10:03)
[2024-10-16] MEDS: LOPRESSOR PO (10:03)
[2024-10-16] MEDS: ZOLOFT PO (10:03)
[2024-10-16 10:23] VITALS: BMI 20.8
[2024-10-16] MEDS: ROCEPHIN 1000 MG IV (11:05)
[2024-10-16] MEDS: STERILE WATER FOR INJECTION 10 ML IV (11:06)
[2024-10-16 11:18] VITALS: BP 117/58
[2024-10-16] MEDS: FLAGYL 500 MG 100 IV ×2 (12:53→20:57)
[2024-10-16] MEDS: NON-FORMULARY ITEM 1 UNIT TOPICAL (12:54)
--- NOTE | 2024-10-16 13:33 | CM ---
Patient seen at bedside with Annabella her first cousin
IA Completed
Dx: PNA, dysphagia
PMH: Afib, COPD, trach,laryngeal ca w/laryngectomy s/p radiation ([facility]) which she stated she completed.
Reports just returned to her home on 10/09 - Was at [place], then vent rehab and then went to her son's home until 10/09
PLOF: Amulates without device in the home, cane/walker outside
DME: walker, cane, trach supplies, tube feed - tube feed supplies through [facility]
Current with [facility] - referral entered in [facility]
Denies insecurities
PCP: Erick Schwarz
Pharmacy: [facility]
PLAN: CM to follow for dispo planning, [facility]
[2024-10-16 15:00] VITALS: BP 111/59
[2024-10-16] MEDS: PLAVIX 75 MG TUBE (17:38)
--- NOTE | 2024-10-16 19:12 | W.PN.UPDATE ---
Update Note
Progress Note Update
SOB
Called to see pt for increasing SOB and dried blood blocking stoma
Pt in no distress, but clearly stoma significantly blocked with dried blood
Removed c forceps , scoped airway
tracheal airway patent, no further clots
Fresh blood seen along posterior tracheal wall, tony clear
A/P Tracheal bleeding - causing some stomal blockage now cleared
Source either pulmonary from pneumonia, or possibly tracheal wall
Continue humidified oxygen, Ponaris oil if available
follow pulse ox, can always ventilate with ETT if needed
if continued bleeding, may want to consider transfer pt back to [facility]
[2024-10-16 19:16] VITALS: BP 132/71
--- NOTE | 2024-10-16 20:33 | W.PN.UPDATE ---
Update Note
Progress Note Update
Placed #6 Shiley trach tube to ensure patency of stoma and airway
Spoke to ENT at [facility]
While likely blood from tracheiitis /pneumonia, will check CT angiogram to r/o significant vascular issue
Plan to transfer to [facility] in AM if CTA negative, urgently if positive
Continue Humidified oxygen, suction prn
Should have pulse ox monitoring
[2024-10-16 20:38] LABS: Hematocrit 34.3 % (37.0-47.0); Mean Corp Hgb Conc. 32.1 g/dL (33.0-37.0); Mean Corpuscular Hgb 29.6 pg (27.0-31.0); Mean Corpuscular Volume 92.5 fL (81.0-99.0); Mean Platelet Volume 12.3 fL (7.4-10.4); Platelet Count 237 10^3/uL (130-400); Red Blood Cell Count 3.71 10^6/uL (4.20-5.40); Red Cell Dist. Width 14.9 % (11.5-14.5); White Blood Cell Count 3.6 10^3/uL (4.8-10.8)
[2024-10-16] MEDS: ATIVAN 0.5 MG IV ×2 (20:45→23:18)
[2024-10-16] MEDS: NSS (PRESERVATIVE FREE) 0.25 ML IV ×2 (20:48→23:17)
[2024-10-16] MEDS: MORPHINE SULFATE 2 MG IV ×2 (20:56→21:14)
[2024-10-16] MEDS: LOPRESSOR 25 MG TUBE (21:15)
[2024-10-16] MEDS: NSS 1000 IV (23:13)
[2024-10-16 23:25] VITALS: BP 102/55
[2024-10-17] MEDS: DECADRON 4 MG IV ×4 (02:04→19:57)
--- NOTE | 2024-10-17 02:51 | PTCARENOTE ---
Pt with frequent moist productive cough and fresh bloody secretions coming out of trachea stoma causing her some resp distress, rn admissions ENT and Hospitalist at beside. Pt was suctioned by ENT and a 6 shiley trach tube was placed, CT of neck ordered.
PRN morphine 2mg and ativan IV administered x2 with + effect. Pt was eventually taken to Cat scan after resp status improved and coughing/secretions decreased, tolerated well. TF on hold since 1999 as per hospitalist order. IV fluids initiated. Pt
on 8L O2 with humidifier, remains on continues pox with sat 94-99 %. Pt to transfer to [facility] in the morning, d/c orders in place.
[2024-10-17 03:30] VITALS: BP 133/73
[2024-10-17] MEDS: FLAGYL 500 MG 100 IV ×3 (04:13→19:53)
[2024-10-17 07:00] VITALS: BP 127/68
--- NOTE | 2024-10-17 07:57 | W.PN.HOSP.TC ---
Today's Communication/Plan
-
cont abx steroids
ativan morphine prn
Resume night time tube feeds
monitor for further recurrence tracheal bleeding
Transfer to [facility] when Bed available
Assessment / Plan
Assessment / Plan
Physical Exam
General: No Apparent Distress
HEENT: NormoCephalic, Anicteric, Moist mucous membranes, Open tracheostomy stoma, trach tube present
Respiratory: Clear
Cardiac: S1/S2 and Regular Rhythm
GI: Soft, Non Tender, Non Distended, G-J tube present
Musculoskeletal: No Clubbing, No Cyanosis and No Edema
Skin: Warm and Dry
Neuro: Awake, Alert and Oriented
Psych: Calm
HPI: 73-year-old female with a past history of atrial fibrillation, COPD, pancreatic insufficiency, and laryngeal cancer status post laryngectomy & radiation presents with a 2-day history of shortness of breath and dysphagia. Although patient has a
G-J tube, she does eat a chopped diet. 2 days ago she started having problems swallowing her food and pills. She has shortness of breath with lying down. She is coughing, bringing up blood from her trach site. Denies nausea, vomiting, abdominal
pain. No fever, no chest pain. No abdominal pain. No dysuria. No black or bloody stools. She is followed by the [facility], Dr. Gianluca Mckeon is her surgeon. She last had radiation 3 weeks ago and completed treatment.
#Acute hypoxic respiratory insufficiency
#Pneumonia, suspect aspiration
COVID and flu negative
Status post levofloxacin in the ED
weaned off oxygen supplementation, stable respiratory status on room air
IV Rocephin, Flagyl converted to PO doxycycline, converted back to IV rocephin and flagyl due to concern worsening respiratory status
#Dysphagia
Cleared by SPL for pur�ed diet with thin liquids
Hold Lasix and spironolactone with reduced PO intake
on supplemental Tube feeds bedtime Jevity at home (resumed continuous 20 cc/h, arts administrator or manager eval appreciated)
Tube feeds briefly placed on hold d/t concern possible need for intervention, since resumed, oral diet however remains on hold for now
#Laryngeal cancer status post laryngectomy and radiation treatment 3 weeks ago
#Mild bleeding from trach stoma initally
#[facility] progressive dyspnea dried blood blocking stoma unclear source
Followed by the [facility], Dr. Gianluca Mckeon is her surgeon
Status post IV dexamethasone in the ER
IV Decadron 4mg Q6H started, cont
consult wound care appreciated
consult ENT appreciated significant amount of dried blood was cleared, unclear source of bleeding, possibly pulmonary from pneumonia or tracheal wall, recommended for transfer back to [facility] higher level of care known to ENT surgeons there, accepted
by Dr Ramos (Dr. Gianluca Mckeon's partner)
10/16/24 as per discussion with ENT corrections specialist Dr Harrison and [facility] Dr Ramos
-patient tentatively accepted for ambulance transfer pending bed availability
-CT angio Neck appreciated no active hemorrhage
-Shiley trach tube placed by ENT to keep stoma patent in case of bleeding
-Morphine 2mg IV Q4H prn for coughing/irritation from trach tube
-Ativan IV prn anxiety sleep
-continuous pulse ox monitoring
#Paroxysmal atrial fibrillation
Continue Plavix, metoprolol tartrate 25 mg twice a day
#Chronic heart failure, unknown type
Hold Lasix and Aldactone for now secondary to dysphagia/diarrhea weight loss
#Elevated troponin
chest pain free
likely nonischemic myocardial injury from pneumonia and hypoxia
troponin trended flat 0.081
#GERD
Continue PPI
#COPD
Continue home bronchodilators
#Anxiety/depression
Continue SSRI
DVT prophylaxis SCD
DNR
Discussed with patient and patient's son Satnam.
Total time spent to see the patient on the floor, examine the patient, review data and lab results, discuss treatment plan with patient, nursing staff around 50 minutes.
Anticipated Discharge: 24 - 48 hours
Subjective/Interval History
-
Date of Service: October 17, 2024
No acute distress. Appears comfortable at this time.
Objective Data
-
Labs:
Laboratory Results
10/16/24 10/17/24
20:21 06:34
WBC 3.6 L Pending
Hgb 11.0 L Pending
Hct 34.3 L Pending
Plt Count 237 Pending
Sodium Pending
Potassium Pending
Chloride Pending
Carbon Dioxide Pending
BUN Pending
Creatinine Pending
Glucose Pending
Calcium Pending
Vital Signs:
Vital Signs
Temp Pulse Resp BP Pulse Ox
97.3 F 62 18 133/73 100
10/17/24 03:30 10/17/24 03:30 10/17/24 03:30 10/17/24 03:30 10/17/24 03:30
I&O
10/16/24 10/17/24 10/18/24
06:59 06:59 06:59
Intake Total 510 / 510 550 / 550
Balance 510 / 510 550 / 550
--- NOTE | 2024-10-17 08:00 | W.PN.UPDATE ---
Update Note
Progress Note Update
Pt stable overnight
Trach tube in place, airway patent
CTA shows atherosclerotic plaques, but no evidence of erosion or bleeding
Hgb - stable
A/P Tracheal bleeding
stable, airway stable
?blood from stoma / trachea / pulmonary source
cont trach tube and humidified oxygen
on antibiotics and steroids
possible transfer to [facility]
[2024-10-17 08:21] LABS: Hematocrit 30.8 % (37.0-47.0); Hemoglobin 10.3 g/dL (12.0-16.0); Mean Corp Hgb Conc. 33.4 g/dL (33.0-37.0); Mean Corpuscular Hgb 30.1 pg (27.0-31.0); Mean Corpuscular Volume 90.1 fL (81.0-99.0); Platelet Count 232 10^3/uL (130-400); Red Blood Cell Count 3.42 10^6/uL (4.20-5.40); Red Cell Dist. Width 14.8 % (11.5-14.5); White Blood Cell Count 4.4 10^3/uL (4.8-10.8)
[2024-10-17 08:51] LABS: Blood Urea Nitrogen 25 mg/dl (7-17); Calcium 9.1 mg/dl (8.4-10.2); Carbon Dioxide 24 mmol/L (22-30); Chloride 103 mmol/L (98-107); Estimated Creatinine Clearance 54 ml/min; Glucose 129 mg/dl (70-99); Phosphorus 4.1 mg/dl (2.5-4.5); Potassium 4.9 mmol/L (3.5-5.1); Sodium 137 mmol/L (135-145); eGFR > 60.00
[2024-10-17] MEDS: LOPRESSOR 25 MG TUBE ×2 (09:11→19:56)
[2024-10-17] MEDS: ZOLOFT 50 MG TUBE (09:12)
[2024-10-17] MEDS: PLAQUENIL 200 MG PO ×2 (09:13→19:57)
[2024-10-17] MEDS: ZYLOPRIM 100 MG TUBE (09:13)
[2024-10-17] MEDS: PREVACID 30 MG TUBE (09:13)
[2024-10-17] MEDS: DESENEX/MITRAZOL/ZEASORB TOPICAL (09:30)
[2024-10-17 09:52] VITALS: BMI 21.2
[2024-10-17] MEDS: STERILE WATER FOR INJECTION 10 ML IV (10:48)
[2024-10-17] MEDS: ROCEPHIN 1000 MG IV (10:48)
[2024-10-17 11:00] VITALS: BP 126/74
--- NOTE | 2024-10-17 13:43 | PTCARENOTE ---
Pt not having loose stool at this time. stool specimen d/c per order. no hx: MRSA. off isolation precautions at this time per inf control.
[2024-10-17 15:21] VITALS: BP 125/61
--- NOTE | 2024-10-17 16:06 | CM ---
Patient discharge in for possible transfer to [facility]
Current with [facility] - accepted referral in [facility]
PLAN: Possible transfer to [facility]
[2024-10-17] MEDS: NSS IV (17:01)
[2024-10-17] MEDS: PLAVIX 75 MG TUBE (17:01)
--- NOTE | 2024-10-17 18:38 | PTCARENOTE ---
[facility] called and stated no beds available today. will try tomm.
[2024-10-17 19:11] VITALS: BP 134/64
[2024-10-17] MEDS: DESENEX/MITRAZOL/ZEASORB 1 APPLIC TOPICAL (19:57)
[2024-10-17 23:06] VITALS: BP 127/66
[2024-10-18] MEDS: DECADRON 4 MG IV ×3 (01:35→17:27)
--- NOTE | 2024-10-18 01:39 | PTCARENOTE ---
Tried increasing tube feeds from 20ml/hr to 30ml/hr per order (10mls q8h), but pt refused and requested for it to stay at 20ml/hr, pt stated she is having diarrhea from it.
[2024-10-18 03:01] VITALS: BP 129/59
[2024-10-18] MEDS: FLAGYL 500 MG 100 IV ×2 (05:00→12:14)
[2024-10-18 06:00] VITALS: BMI 21.2
--- NOTE | 2024-10-18 06:39 | W.PN.HOSP.TC ---
Today's Communication/Plan
-
cont abx as per ID
Pureed diet as tolerated, follow up VSE in AM
Imodium prn
tube feed duration reduced as per pt request
Mucinex
transfer to [place] when Bed available
Assessment / Plan
Assessment / Plan
Physical Exam
General: No Apparent Distress
HEENT: NormoCephalic, Anicteric, Moist mucous membranes, Open tracheostomy stoma, trach tube present
Respiratory: Clear
Cardiac: S1/S2 and Regular Rhythm
GI: Soft, Non Tender, Non Distended, G-J tube present
Musculoskeletal: No Clubbing, No Cyanosis and No Edema
Skin: Warm and Dry
Neuro: Awake, Alert and Oriented
Psych: Calm
HPI: 73-year-old female with a past history of atrial fibrillation, COPD, pancreatic insufficiency, and laryngeal cancer status post laryngectomy & radiation presents with a 2-day history of shortness of breath and dysphagia. Although patient has a
G-J tube, she does eat a chopped diet. 2 days ago she started having problems swallowing her food and pills. She has shortness of breath with lying down. She is coughing, bringing up blood from her trach site. Denies nausea, vomiting, abdominal
pain. No fever, no chest pain. No abdominal pain. No dysuria. No black or bloody stools. She is followed by the [facility], Dr. Gianluca Mckeon is her surgeon. She last had radiation 3 weeks ago and completed treatment.
#Acute hypoxic respiratory insufficiency
#Pneumonia, suspect aspiration
COVID and flu negative
Status post levofloxacin in the ED
weaned off oxygen supplementation, stable respiratory status on room air
sputum cx appreciated MSSA
ID eval appreciated ceftriaxone flagyll narrowed to cefazolin patient to transition to cephalexin 500 mg QID on discharge to complete 10-14 days abx
#Dysphagia
Cleared by SPL for pur�ed diet with thin liquids
Hold Lasix and spironolactone with reduced PO intake
on supplemental Tube feeds bedtime Jevity at home (resumed continuous 20 cc/h, family day carer eval appreciated)
Tube feeds briefly placed on hold d/t concern possible need for intervention, since resumed, oral diet later resumed
speech eval appreciated VSE planned for AM 10/19/24
#Laryngeal cancer status post laryngectomy and radiation treatment 3 weeks ago
#Mild bleeding from trach stoma initally
#[facility] progressive dyspnea dried blood blocking stoma unclear source
Followed by the [facility], Dr. Gianluca Mckeon is her surgeon
Status post IV dexamethasone in the ER
IV Decadron 4mg Q6H started, cont
consult wound care appreciated
consult ENT appreciated significant amount of dried blood was cleared, unclear source of bleeding, possibly pulmonary from pneumonia or tracheal wall, recommended for transfer back to [facility] higher level of care known to ENT surgeons there, accepted
by Dr Ramos (Dr. Gianluca Mckeon's partner)
10/16/24 as per discussion with ENT protection manager Dr Harrison and [facility] Dr Ramos
-patient tentatively accepted for ambulance transfer pending bed availability
-CT angio Neck appreciated no active hemorrhage
-Shiley trach tube placed by ENT to keep stoma patent in case of bleeding
-Morphine 2mg IV Q4H prn for coughing/irritation from trach tube
-Ativan IV prn anxiety sleep
-continuous pulse ox monitoring
#Paroxysmal atrial fibrillation
Continue Plavix, metoprolol tartrate 25 mg twice a day
#Chronic heart failure, unknown type
Hold Lasix and Aldactone for now secondary to dysphagia/diarrhea weight loss
#Diarrhea likely 2/2 tube feeds
immodium prn
duration night time tube feeds reduced per patient's request, tolerating pureed diet
#Elevated troponin
chest pain free
likely nonischemic myocardial injury from pneumonia and hypoxia
troponin trended flat 0.081
#GERD
Continue PPI
#COPD
Continue home bronchodilators
#Anxiety/depression
Continue SSRI
DVT prophylaxis SCD
DNR
Discussed with patient and patient's son Satnam.
Total time spent to see the patient on the floor, examine the patient, review data and lab results, discuss treatment plan with patient, nursing staff around 50 minutes.
Anticipated Discharge: 24 - 48 hours
Subjective/Interval History
-
Date of Service: October 18, 2024
Overall appears well. Diarrhea d/t tube feeds persist. Otherwise denies new acute issues at this time.
Objective Data
-
Labs:
Laboratory Results
10/18/24
05:53
WBC Pending
Hgb Pending
Hct Pending
Plt Count Pending
Sodium Pending
Potassium Pending
Chloride Pending
Carbon Dioxide Pending
BUN Pending
Creatinine Pending
Glucose Pending
Calcium Pending
Vital Signs:
Vital Signs
Temp Pulse Resp BP Pulse Ox
98.2 F 63 17 129/59 98
10/18/24 03:01 10/18/24 03:01 10/18/24 03:01 10/18/24 03:01 10/18/24 03:01
I&O
10/16/24 10/17/24 10/18/24
06:59 06:59 06:59
Intake Total 510 / 510 550 / 550 480 / 480
Output Total 3 / 3
Balance 510 / 510 550 / 550 477 / 477
[2024-10-18 06:50] LABS: Hematocrit 33.1 % (37.0-47.0); Hemoglobin 10.8 g/dL (12.0-16.0); Mean Corp Hgb Conc. 32.6 g/dL (33.0-37.0); Mean Corpuscular Hgb 29.8 pg (27.0-31.0); Mean Corpuscular Volume 91.2 fL (81.0-99.0); Platelet Count 231 10^3/uL (130-400); Red Blood Cell Count 3.63 10^6/uL (4.20-5.40); Red Cell Dist. Width 14.7 % (11.5-14.5); White Blood Cell Count 5.5 10^3/uL (4.8-10.8)
[2024-10-18 07:00] VITALS: BP 128/63
[2024-10-18 07:25] LABS: Blood Urea Nitrogen 26 mg/dl (7-17); Calcium 9.5 mg/dl (8.4-10.2); Carbon Dioxide 23 mmol/L (22-30); Chloride 103 mmol/L (98-107); Estimated Creatinine Clearance 47 ml/min; Glucose 121 mg/dl (70-99); Magnesium 2.1 mg/dl (1.6-2.3); Potassium 4.6 mmol/L (3.5-5.1); Sodium 136 mmol/L (135-145); eGFR > 60.00
--- NOTE | 2024-10-18 08:24 | W.PN.UPDATE ---
Update Note
Progress Note Update
Pt stable overnight
no active bleeding
Hgb - stable
Suction catheter and spare #6 Shiley in room
Stoma site clean and dry
CTA negative for bleeding, does show abnormality in R upper lobe , poss pneumonia vs lesion
A/P Pneumonia, tracheal bleeding
Possible lung lesion or pneumonia could have been bleeding source, stable presently
May need bronchoscopy or PET scan to evaluate
Just recently completed XRT, this can sometimes cause false positive areas on a PET scan
Potentially just bled from stoma and tracheitis
Continue antibx and a few more doses of steroid, then can taper steroid
Airway protected and patent with trach in place
Humidified oxygen
Possible transfer to [facility] when bed available
[2024-10-18] MEDS: PREVACID 30 MG TUBE (08:56)
[2024-10-18] MEDS: ZOLOFT 50 MG TUBE (08:57)
[2024-10-18] MEDS: LOPRESSOR 25 MG TUBE ×2 (08:57→20:46)
[2024-10-18] MEDS: PLAQUENIL 200 MG PO ×2 (08:57→20:46)
[2024-10-18] MEDS: ZYLOPRIM 100 MG TUBE (08:57)
[2024-10-18] MEDS: DESENEX/MITRAZOL/ZEASORB 1 APPLIC TOPICAL ×2 (09:06→20:45)
[2024-10-18] MEDS: STERILE WATER FOR INJECTION 10 ML IV (09:08)
[2024-10-18] MEDS: ROCEPHIN 1000 MG IV (09:09)
[2024-10-18 11:20] VITALS: BP 142/60
[2024-10-18] MEDS: IMODIUM LIQUID 2 MG TUBE (12:14)
[2024-10-18] MEDS: ROBITUSSIN 200 MG TUBE ×3 (12:14→22:02)
[2024-10-18 15:40] VITALS: BP 124/58
--- NOTE | 2024-10-18 15:58 | CON.ID ---
Consultation
-
Date/Time Consultation Requested: 10/18/2024 0832
Date/Time Consultation Performed: 10/18/2024 1520
Requesting Provider: Dr. Mckeon
Performing Provider: Dr. Christian
Reason for Consultation: Tracheitis
Chief Complaint / Past History
History of Present Illness
Rosa Elena Nails is a 73-year-old female being evaluated at the request of Dr. Mckeon in regards to tracheitis and hemoptysis. History is obtained from chart review, along with patient interview.
The patient has a significant past medical history of laryngeal cancer and has undergone a laryngectomy, and has recently completed a 30 session course of XRT. Patient reports that over the past several days she has had increased difficulty with
swallowing, along with the development of diarrhea and progressive weakness. She also has had an ongoing cough and has produced some blood-tinged sputum.
In further history, the patient was diagnosed with laryngeal cancer in April, and in late May underwent her laryngectomy. Thereafter, she was receiving 30 treatments of XRT, and also underwent placement of a GJ tube. There had been issues with
reflux, along with postop wounds, some of which was related to possible aspiration of tube feeds, and more recently her G-tube was converted to a GJ tube. She has slowly had her diet advanced, and had been cleared for chopped food. Over the prior
5 days she has noted an increase in her cough. She was producing thick yellow/green sputum from her trach. Some of that sputum was blood-tinged, but she also had episodes of more dorian blood being produced.
Again, she denies any fevers or chills. She admits to diarrhea, but no recent nausea or vomiting.
Past History
Additional Past Medical History:
Laryngeal cancer (s/p surgery and XRT)
CHF
A-fib
COPD
Pancreatic insufficiency
Hx lung cancer
Additional Past Surgical History:
Laryngectomy (06/01/2024)
Appendectomy
PPM placement
G�J-tube placement
Allergy History:
chlorpheniramine Allergy (Verified 10/16/24 21:36)
Unknown
latex Allergy (Verified 07/17/24 23:23)
Unknown
Penicillins Allergy (Verified 07/17/24 23:23)
Vomiting
tetanus toxoid, adsorbed Allergy (Verified 07/18/24 00:56)
Unknown
Medications Reviewed: Yes
Current Antibiotics:
Ceftriaxone
Metronidazole
Social History
Tobacco: Former Smoker
Alcohol: Occasional
Drug: None
Personal: Single
Living: Alone
Employment: Not Employed
Review of Systems
Vital Signs
Temp Pulse Resp BP Pulse Ox
98.1 F 81 14 142/60 98
10/18/24 11:20 10/18/24 11:20 10/18/24 11:20 10/18/24 11:20 10/18/24 11:20
Physical Exam
Physical Exam
Constitutional: No Acute Distress, Comfortable and Non-toxic
Eyes: No Conjunctival Hemorrhage
Oral: No Thrush and No Ulcers
Cardiovascular: S1/S2; Negative S3/S4
Pulmonary: Coarse, Non Labored and Other (Tracheostomy in place)
Gastrointestinal: Soft, Non Tender, Non Distended and Other (GJ tube in place)
Genito-Urinary: Negative [place]
Extremities: Negative Edema, Cyanosis or Erythema
Neurological: Awake and Alert
Psychological: Calm
Lab / Diagnostic Study Results
10/18/24 05:53
10/18/24 05:53
Abs Immat Gran (auto) 0.0 10^3/uL (0-0.05) 10/14/24 07:51
Absolute Neuts (auto) 7.9 10^3/uL (1.4-6.5) H 10/14/24 07:51
Absolute Lymphs (auto) 0.4 10^3/uL (1.2-3.4) L 10/14/24 07:51
Absolute Monos (auto) 0.6 10^3/uL (0.1-0.6) 10/14/24 07:51
Absolute Basos (auto) 0.1 10^3/uL (0-0.2) 10/14/24 07:51
Immature Gran % 0.3 % (0-0.5) 10/14/24 07:51
Neutrophils % 87.3 % (42.2-75.2) H 10/14/24 07:51
Lymphocytes % 4.4 % (20.5-51.1) L 10/14/24 07:51
Monocytes % 6.1 % (1.7-9.3) 10/14/24 07:51
Eosinophils % 1.3 % (0-6) 10/14/24 07:51
Basophils % 0.6 % (0-2) 10/14/24 07:51
Microbiology Results
Micro:
10/15/24 23:56 MRSA Screen - Final
Nose No Methicillin Resistant Staphylococcus aureus isolated.
10/15/24 05:44 Respiratory Culture - Final
Sputum S aureus-Methicillin Sensitive
Gram Stain - Final
10/15/24 23:56 Legionella Urinary Antigen - Final
Urine Negative for Legionella pneumophila Serogroup 1 antigen.
A negative result does not rule out the possiblity of
Legionella infection due to other serogroups or species of
Legionella. Clinical correlation is recommended.
Streptococcus pneumoniae Antigen (M - Final
Negative for Streptococcus pneumoniae antigen.
A negative result does not exclude infection with
Streptococcus pneumoniae. Clinical correlation is
recommended.
10/14/24 09:40 Influenza Types A & B (KVNG) - Final
Nasal Swab Negative for Influenza A & B, NAAT
Negative results must be combined with clinical observations
and patient history.
Nucleic Acid Amplification test (NAAT)performed on the
[employer]VIB[employer] platform.
Imaging:
10/14/2023 CXR (2 view): Postoperative changes in the neck from known laryngeal cancer. Right upper lobe opacity suspicious for mild pneumonia.
Assessment / Plan
Hemoptysis
Suspected PNA (MSSA recovered from sputum)
Tracheitis
Laryngeal cancer (s/p surgery and XRT)
CHF
A-fib
COPD
Pancreatic insufficiency
Hx lung cancer
Recommendations:
Given recovery of MSSA from sputum, will narrow antibiotics to cefazolin 2 g IV every 8 hours.
At discharge, will transition patient to oral cephalexin 500 mg 4 times daily, to complete a 10 to 14-day course of antibiotics.
Follow-up for improvement in cough.
--- NOTE | 2024-10-18 16:41 | CM ---
Patient seen at bedside
ID consulted
Patient [facility] referral in [facility]
Possible transfer to [facility] when bed available
PLAN: ? transfer to [facility], pending bed avail
[2024-10-18] MEDS: ANCEF 10 IV (17:27)
[2024-10-18] MEDS: PLAVIX 75 MG TUBE (17:27)
[2024-10-18 18:59] VITALS: BP 126/56
--- NOTE | 2024-10-18 19:26 | PTCARENOTE ---
Patient requesting TF start at 2300 instead of 1700 d/t increased loose stools during TF duration. Patient tolerating IDDSI-4 diet. MD made aware, order adjusted. Hat in toilet to collect stool sample, patient aware. Patient suctioned through trach
twice this shift for thick vieyra/white secretions, inner cannula changed with respiratory therapy this AM.
[2024-10-18] MEDS: NSS (PRESERVATIVE FREE) 0.25 ML IV (22:02)
[2024-10-18] MEDS: ATIVAN 0.5 MG IV (22:03)
[2024-10-18 23:21] VITALS: BP 122/57
[2024-10-19] MEDS: DECADRON 4 MG IV ×3 (01:38→19:56)
[2024-10-19] MEDS: ANCEF 10 IV ×3 (01:39→17:13)
[2024-10-19 03:00] VITALS: BP 121/66
[2024-10-19 05:12] VITALS: BMI 21.4
[2024-10-19] MEDS: IMODIUM LIQUID 2 MG TUBE (05:44)
--- NOTE | 2024-10-19 06:19 | PTCARENOTE ---
at about 05:30, pt wanted to be disconnected from tube feedings. She states it is due to frequent toileting and unable to sleep. Pt with multiple loose BMs throughout the night. PRN Imodium administered, see DEC. Pt had about 120ml of feeding
overnight.
Pt deep suctioned x3 throughout the night, thick white sputum. No complaints at this time, resting comfortably in bed.
--- NOTE | 2024-10-19 06:50 | W.PN.HOSP.TC ---
Today's Communication/Plan
-
[facility] transfer canceled
nystatin swish magic mouthwash
GI eval
home oxygen assessment
cont abx as per ID
discharge planning
Assessment / Plan
Assessment / Plan
Physical Exam
General: No Apparent Distress
HEENT: NormoCephalic, Anicteric, Moist mucous membranes, Open tracheostomy stoma, trach tube present
Respiratory: Clear
Cardiac: S1/S2 and Regular Rhythm
GI: Soft, Non Tender, Non Distended, G-J tube present
Musculoskeletal: No Clubbing, No Cyanosis and No Edema
Skin: Warm and Dry
Neuro: Awake, Alert and Oriented
Psych: Calm
HPI: 73-year-old female with a past history of atrial fibrillation, COPD, pancreatic insufficiency, and laryngeal cancer status post laryngectomy & radiation presents with a 2-day history of shortness of breath and dysphagia. Although patient has a
G-J tube, she does eat a chopped diet. 2 days ago she started having problems swallowing her food and pills. She has shortness of breath with lying down. She is coughing, bringing up blood from her trach site. Denies nausea, vomiting, abdominal
pain. No fever, no chest pain. No abdominal pain. No dysuria. No black or bloody stools. She is followed by the [facility], Dr. Gianluca Mckeon is her surgeon. She last had radiation 3 weeks ago and completed treatment.
#Acute hypoxic respiratory insufficiency
#Pneumonia, suspect aspiration
COVID and flu negative
Status post levofloxacin in the ED
weaned off oxygen supplementation, stable respiratory status on room air
sputum cx appreciated MSSA
ID eval appreciated ceftriaxone flagyll narrowed to cefazolin patient to transition to cephalexin 500 mg QID on discharge to complete 10-14 days abx
Home oxygen assessment appreciated no oxygen needs 10/19/24
#Dysphagia
#Oral Thrush, likely Esophageal Candidiasis contributing to dysphagia
Cleared by SPL for pur�ed diet with thin liquids
on supplemental Tube feeds bedtime Jevity at home (resumed continuous 20 cc/h, patient care associate eval appreciated)
Tube feeds briefly placed on hold d/t concern possible need for intervention, since resumed, oral diet later resumed
speech VSE eval appreciated concern for esophageal dysphagia
GI eval appreciated esophageal dysphagia likely d/t esophageal candidiasis started on nystatin swish and magic mouthwash
#Laryngeal cancer status post laryngectomy and radiation treatment 3 weeks ago
#Mild bleeding from trach stoma initally
#[facility] day [facility] progressive dyspnea dried blood blocking stoma unclear source
Followed by the [facility], Dr. Gianluca Mckeon is her surgeon
Status post IV dexamethasone in the ER
IV Decadron 4mg Q6H gradually tapered to Q12H
consult wound care appreciated
consult ENT appreciated significant amount of dried blood was cleared, unclear source of bleeding, possibly pulmonary from pneumonia or tracheal wall, recommended for transfer back to [facility] higher level of care known to ENT surgeons there, accepted
by Dr Ramos (Dr. Gianluca Mckeon's partner)
10/16/24 as per discussion with ENT machine feeder floorperson Dr Harrison and [facility] Dr Ramos
-patient accepted for ambulance transfer pending bed availability
-CT angio Neck appreciated no active hemorrhage
-Shiley trach tube placed by ENT to keep stoma patent in case of bleeding
-Morphine 2mg IV Q4H prn for coughing/irritation from trach tube
-Ativan IV prn anxiety sleep
-continuous pulse ox monitoring
*Patient since improved, persistently stable, per ENT Dr Harrison discussion with [facility], no need to transfer at this time, patient to pursue follow up when medically stable for discharge, trach tube to remain in place pending follow up.
#Paroxysmal atrial fibrillation
Continue Plavix, metoprolol tartrate 25 mg twice a day
#Chronic heart failure, unknown type
Holding Lasix for now secondary to dysphagia/diarrhea weight loss
Home Aldactone resumed with holding parameters
#Diarrhea likely 2/2 tube feeds
immodium prn
Tube feeds placed on hold per pt requests, tolerating pureed diet
neg norovirus cdiff
#Elevated troponin
chest pain free
likely nonischemic myocardial injury from pneumonia and hypoxia
troponin trended flat 0.081
#GERD
Continue PPI
#COPD
Continue home bronchodilators
#Anxiety/depression
Continue SSRI
DVT prophylaxis SCD
DNR
Discussed with patient and patient's son Satnam.
Total time spent to see the patient on the floor, examine the patient, review data and lab results, discuss treatment plan with patient, nursing staff around 50 minutes.
Anticipated Discharge: 24 - 48 hours
Subjective/Interval History
-
Date of Service: October 19, 2024
no acute distress. cough persists. tolerating pureed diet. Diarrhea also persisting likely side effect tube feeds- placed on hold as per patient's request.
Objective Data
-
Labs:
Laboratory Results
10/19/24
06:22
WBC Pending
Hgb Pending
Hct Pending
Plt Count Pending
Sodium Pending
Potassium Pending
Chloride Pending
Carbon Dioxide Pending
BUN Pending
Creatinine Pending
Glucose Pending
Calcium Pending
Vital Signs:
Vital Signs
Temp Pulse Resp BP Pulse Ox
97.9 F 61 18 121/66 94
10/19/24 03:00 10/19/24 03:00 10/19/24 03:00 10/19/24 03:00 10/19/24 03:00
I&O
10/17/24 10/18/24 10/19/24
06:59 06:59 06:59
Intake Total 550 / 550 480 / 480 750 / 750
Output Total 3 / 3
Balance 550 / 550 477 / 477 750 / 750
[2024-10-19 07:00] VITALS: BP 138/61
[2024-10-19 07:41] LABS: Blood Urea Nitrogen 33 mg/dl (7-17); Calcium 9.1 mg/dl (8.4-10.2); Carbon Dioxide 21 mmol/L (22-30); Chloride 104 mmol/L (98-107); Estimated Creatinine Clearance 54 ml/min; Glucose 114 mg/dl (70-99); Magnesium 2.2 mg/dl (1.6-2.3); Phosphorus 3.6 mg/dl (2.5-4.5); Potassium 4.4 mmol/L (3.5-5.1); Sodium 133 mmol/L (135-145); eGFR > 60.00
[2024-10-19 07:43] LABS: Hematocrit 32.8 % (37.0-47.0); Hemoglobin 10.7 g/dL (12.0-16.0); Mean Corp Hgb Conc. 32.6 g/dL (33.0-37.0); Mean Corpuscular Hgb 29.6 pg (27.0-31.0); Mean Corpuscular Volume 90.6 fL (81.0-99.0); Mean Platelet Volume 12.4 fL (7.4-10.4); Platelet Count 226 10^3/uL (130-400); Red Blood Cell Count 3.62 10^6/uL (4.20-5.40); Red Cell Dist. Width 14.9 % (11.5-14.5); White Blood Cell Count 5.3 10^3/uL (4.8-10.8)
[2024-10-19] MEDS: PLAQUENIL 200 MG PO ×2 (08:15→19:56)
[2024-10-19] MEDS: PREVACID 30 MG TUBE (08:15)
[2024-10-19] MEDS: ZYLOPRIM 100 MG TUBE (08:15)
[2024-10-19] MEDS: ROBITUSSIN 200 MG TUBE ×4 (08:15→21:34)
[2024-10-19] MEDS: ZOLOFT 50 MG TUBE (08:15)
[2024-10-19] MEDS: LOPRESSOR 25 MG TUBE ×2 (08:15→19:56)
[2024-10-19] MEDS: DESENEX/MITRAZOL/ZEASORB 1 APPLIC TOPICAL ×2 (08:17→19:57)
--- NOTE | 2024-10-19 09:57 | PTOTSP ---
Video Fluoroscopic Swallow Study
Summary: Functional oral stage of swallowing. Pharyngeal stage changes s/p total laryngectomy with pharyngeal stasis that reduced with liquid washes and head turns left/right. Cervical esophagus stasis also noted with retrograde flow within the
esophagus- reduced with a liquid wash.
Patient reported episodes of 'filling up', inability to swallow, and then regurgitation concerning for esophageal dysphagia. GI consult warranted to assess esophageal stage of swallowing. Advance solids if/when cleared by GI. No further dysphagia
tx with an DIRECTOR MOBILE warranted.
Recommendations:
1. L4 Puree and Thin Liquids
2. Medications: crush large pills if able
3. Strategies: upright to 90 degrees, moisten foods and/or add liquids, alternate sips/bites, head turns left/right with dry swallows to assist with pharyngeal clearance, remain upright at least 30 minutes after PO intake
4. GI consult.
[2024-10-19 11:19] VITALS: BP 131/66
--- NOTE | 2024-10-19 12:42 | W.PN.ID1 ---
Date of Service
Date of Service: October 19, 2024
Today's Communication
Continue antibiotics. See below�
Assessment / Plan
Hemoptysis
Suspected PNA (MSSA recovered from sputum)
Tracheitis
Laryngeal cancer (s/p surgery and XRT)
CHF
A-fib
COPD
Pancreatic insufficiency
Hx lung cancer
Recommendations:
Given recovery of MSSA from sputum, will narrow antibiotics to cefazolin 2 g IV every 8 hours.
At discharge, transition patient to oral cephalexin 500 mg 4 times daily, to complete a 14-day course of antibiotics. (through 10/27)
����������������������������������������������������������
Chief Complaint
-: Other (Tracheitis, suspected bronchitis, recent hemoptysis)
Subjective / Review of Systems
Patient seen and examined. Reports ongoing cough, but no further hemoptysis. Denies short of breath
Review of Systems: No Fever and No Chills
Vital Signs / Physical Exam
Vital Signs
Vital Signs
Temp Pulse Resp BP Pulse Ox
98.3 F 61 16 131/66 98
10/19/24 11:19 10/19/24 11:19 10/19/24 11:19 10/19/24 11:19 10/19/24 11:19
Physical Exam
Constitutional: No Acute Distress, Comfortable, Chronically Ill, Non-toxic and Cachetic
Eyes: Sclera Anicteric
Oropharyngeal: Other (Tracheostomy in place.)
Cardiovascular: S1/S2; Negative S3/S4
Pulmonary: Coarse and Non Labored
Gastrointestinal: Soft, Non Tender and Other (JG tube in place.)
Extremities: Edema; Negative Cyanosis or Erythema
Neurological: Awake and Alert
Psychological: Calm
Objective Data
Lab Data
Lab Results
10/19/24 06:22
10/19/24 06:22
Estimated Creat Clear 54 ml/min 10/19/24 06:22
Total Bilirubin 0.4 mg/dl (0.2-1.3) 10/14/24 07:51
AST 23 U/L (14-36) 10/14/24 07:51
ALT 17 U/L (0-35) 10/14/24 07:51
Alkaline Phosphatase 93 U/L (38-126) 10/14/24 07:51
Most recent labs reviewed.
Micro Results:
10/19/24 09:15 C. difficile GDH Antigen & Toxins - Final
Feces/Stool Negative for toxigenic C.difficile
- Final
Negative for Norovirus GI and GII.
10/15/24 23:56 MRSA Screen - Final
Nose No Methicillin Resistant Staphylococcus aureus isolated.
10/15/24 05:44 Respiratory Culture - Final
Sputum S aureus-Methicillin Sensitive
Gram Stain - Final
10/15/24 23:56 Legionella Urinary Antigen - Final
Urine Negative for Legionella pneumophila Serogroup 1 antigen.
A negative result does not rule out the possiblity of
Legionella infection due to other serogroups or species of
Legionella. Clinical correlation is recommended.
Streptococcus pneumoniae Antigen (M - Final
Negative for Streptococcus pneumoniae antigen.
A negative result does not exclude infection with
Streptococcus pneumoniae. Clinical correlation is
recommended.
10/14/24 09:40 Influenza Types A & B (KVNG) - Final
Nasal Swab Negative for Influenza A & B, NAAT
Negative results must be combined with clinical observations
and patient history.
Nucleic Acid Amplification test (NAAT)performed on the
591wed platform.
Imaging:
10/14/2023 CXR (2 view): Postoperative changes in the neck from known laryngeal cancer. Right upper lobe opacity suspicious for mild pneumonia.
Care Review
Plan reviewed with: Physician (Hospitalist)
[2024-10-19] MEDS: MYCOSTATIN ORAL SUSPENSION 5 ML PO ×3 (14:06→21:33)
[2024-10-19] MEDS: MAGIC OR MIRACLE MOUTHWASH 5 ML PO ×3 (14:07→21:33)
[2024-10-19 15:00] VITALS: BP 129/53
--- NOTE | 2024-10-19 16:01 | CON.GI ---
Addendum entered and electronically signed by Rowena Garcia DO 10/19/24 16:47:
The patient was seen and examined by me independently in collaboration with the nurse practitioner.
Past medical history/social history/medications/allergies/family history reviewed.
Lab data and imaging data reviewed.
Rosa Elena Nails is a 73 y.o. female w/ pmhx laryngeal ca s/p laryngectomy and recent radiation therapy who presents with complaints of dysphagia, productive cough, progressive weakness and diarrhea. She has a G-J tube, not tolerating TFs due to diarrhea.
She was seen by ENT on 10/14 for hemoptysis and thick secretions from stomac, diagnosed with tracheitis and possible pneumonia. Endoscopy of trachea demonstrated a few spots of blood, no lesions, obstruction, erosions or exposed vessels. She was
reevaluated by ENT on 10/16 for increased bleeding, found to have stomal blockage which was cleared, unclear if source was pulmonary or tracheal wall. Sputum + MSSA, seen by ID, being treated for pneumonia, currently on cefazolin with plans to
transition to oral cephalexin x2 weeks on discharge.
Patient had VFS today, showing pharyngeal stasis that reduced with liquid washes and head turns left/right. Cervical esophagus stasis also noted with retrograde flow within the esophagus- reduced with a liquid wash. Recommendations were made for GI
consultation. She is currently cleared for pureed diet.
-Oral thrush on exam, started on nystatin swish/swallow
-Magic mouthwash, can add carafate as well
-Prevacid via J tube
-Dx of pancreatic insufficiency? Follows with Dr. Voss as an outpatient
-Recommend continuing on pureed diet per CEMENT PATCHER recommendations
-Dedicated barium esophagram on tuesday if no improvement
-outpatient follow-up with patient's primary GI doctor, Dr. Voss
Original Note:
Consultation
-
Date/Time Consultation Requested: 10/19/24 1241
Date/Time Consultation Performed: 10/19/24 1400
Requesting Provider: Dr. Mckeon
Performing Provider: Dr. Garcia/KELLIE Huffman
Reason for Consultation: dysphagia
Medical History
Chief Complaint / HPI
Chief Complaint: sob. difficulty swallowing
History of Present Illness:
73-year-old female with past medical history of laryngeal cancer status post laryngectomy in May at [facility] who just completed 30 rounds of radiation 3 weeks ago, atrial fibrillation, COPD, pancreatic insufficiency, vascular
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 She presented to the
emergency room on 10/14/2024. Today we are asked to see her for dysphagia. In the past 5 days that she has been admitted patient had issues with bleeding from her stoma, coughing up thick secretions, had endoscopy of her trachea by ENT that showed a
few spots of blood, no lesions, no obstruction no erosion or exposed vessels. She was treated for tracheitis and possible pneumonia. On 10/16/2024 she was a rapid response for increasing shortness of breath and dried blood blocking her stoma. This
area was cleared with forceps by ENT. Airway was scoped. Fresh blood was seen along posterior tracheal wall and tony was clear. A #6 Shiley trach tube to ensure patency of stoma and airway was placed and call was placed to ENT at [facility] for possibility of transfer for higher level/continuity of care. The patient was continued on antibiotics and steroids. Her IV Rocephin and Flagyl was converted to p.o. doxycycline initially however was reconverted back to IV
antibiotics secondary to concerns for worsening respiratory status. The patient was seen and cleared by speech language pathology for pur�ed diet with thin liquids. Her supplemental tube feeds with Jevity were resumed. She does have a GJ tube.
The patient only use G-tube for medication and J-tube for feeds. She states that this was secondary to the fact that she did not tolerate G-tube feeds as they would stay within her stomach. J-tube feeds did well. In the past patient was diagnosed
with pancreatic insufficiency by her primary an employee sponsor or advocate and Dr. Patel and was on Creon. She was taken off of this at [facility] when she started on J-tube feeds. She has had no issues with diarrhea or abdominal pain since she
has been on J-tube feeds. She did state that she started to take an oral intake in the forms of very small chopped up food like moistened pieces of rice with chicken broth. Finely chopped up parts of [employer] cheeseburger which her friend that
is staying with her did not even realize. Those were just in the few days leading up to her hospitalization. Prior to that she was on tube feed diet. I did confirm this with her son and he states that she was on Jevity as well. She is currently
on Jevity via J-tube. She is tolerating that well. She did have diarrhea yesterday. She has had no further bowel movements today. She does have some mild thrush on her tongue. She has been getting nystatin swish and swallow and has been
tolerating that. She denies any fevers, chills, nausea, vomiting, melena, hematochezia, odynophagia, early satiety or unintentional weight loss of late. The patient had a modified barium swallow and CEMENT PATCHER evaluation today. Brief imaging of the
thoracic esophagus demonstrates upper esophageal stasis with redirection of contrast. No penetration or airway aspiration. Diet recommendation is L4 pur�e and thin liquids. Crushed large pills if able. Patient to sit upright at 90 degrees,
moisten foods and/or add liquids alternating sips and bites. Patient is to turn head left and right with dry swallows to assist with pharyngeal clearance. Remain upright at least 30 minutes after p.o. intake.WBC 5.3, hemoglobin 10.7, hematocrit
32.8, platelets 226 sodium 133, potassium 4.4, BUN 33, creatinine 0.7, glucose 114. COVID-negative, flu negative, C. difficile negative, Legionella negative, strep pneumonia negative. Sputum culture positive MSSA.
Past Medical History
Past Medical History: Other (Laryngeal cancer status post laryngectomy, A-fib, COPD, pancreatic insufficiency, bariatric motility issues, pneumonia)
Past Surgical History: Other (Laryngectomy, appendectomy, pacemaker, vascular stent, Trach, GJ tube)
Social History
Tobacco: Former Smoker
Alcohol: None
Drug: None
Personal: Single
Family History
Family History: Other (No family history of gastrointestinal malignancy or IBD)
Allergies / Home Medications
Allergy/AdvReac Type Severity Reaction Status Date / Time
chlorpheniramine Allergy Unknown Verified 10/16/24 21:36
latex Allergy Unknown Verified 07/17/24 23:23
Penicillins Allergy Vomiting Verified 07/17/24 23:23
tetanus toxoid, adsorbed Allergy Unknown Verified 07/18/24 00:56
�Medication �Instructions �Recorded
allopurinol 100 mg tablet 100 mg PO DAILY Gout 10/14/24
budesonide 0.5 mg/2 mL suspension 0.5 mg inhalation R BIDPRN PRN sob 10/14/24
for nebulization
clopidogrel 75 mg tablet (Plavix) 75 mg PO QPM Blood Clot 10/14/24
Prevention/Tx
food supplemt, lactose-reduced 1 ea PO QPM Supplement 10/14/24
furosemide 20 mg tablet (Lasix) 20 mg PO DAILY Fluid 10/14/24
Retention/Swelling
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
(Plaquenil)
lansoprazole 15 mg capsule,delayed 30 mg feeding tube DAILY 10/14/24
release Gastrointestinal Issue
metoprolol tartrate 25 mg tablet 25 mg PO BID Blood Pressure 10/14/24
revefenacin 175 mcg/3 mL solution 175 mcg inhalation R DAILYPRN PRN 10/14/24
for nebulization (Yupelri) sob
sertraline 25 mg tablet 50 mg PO DAILY Depression 10/14/24
spironolactone 25 mg tablet 25 mg PO DAILY Fluid 10/14/24
Retention/Swelling
Review of Systems
-
All other systems: A 12 pt ROS was Negative except as stated above in HPI
Vital Signs
Temp Pulse Resp BP Pulse Ox
98.5 F 62 16 129/53 97
10/19/24 15:00 10/19/24 15:00 10/19/24 15:00 10/19/24 15:00 10/19/24 15:00
Physical Exam
Exam
General: No Apparent Distress
HEENT: Thrush and Tracheotomy
Respiratory: Clear
Cardiac: Regular Rhythm
GI: Soft, Non Tender, Non Distended, Normal Bowel Sounds and Other (GJ tube in place)
Musculoskeletal: No Edema
Skin: Warm and Dry
Neuro: AO x 3
Psych: Calm
Results
WBC 5.3 10^3/uL (4.8-10.8) 10/19/24 06:22
Hgb 10.7 g/dL (12.0-16.0) L 10/19/24 06:22
Hct 32.8 % (37.0-47.0) L 10/19/24 06:22
MCV 90.6 fL (81.0-99.0) 10/19/24 06:22
Plt Count 226 10^3/uL (130-400) 10/19/24 06:22
Absolute Neuts (auto) 7.9 10^3/uL (1.4-6.5) H 10/14/24 07:51
Sodium 133 mmol/L (135-145) L 10/19/24 06:22
Potassium 4.4 mmol/L (3.5-5.1) 10/19/24 06:22
Chloride 104 mmol/L (98-107) 10/19/24 06:22
Carbon Dioxide 21 mmol/L (22-30) L 10/19/24 06:22
BUN 33 mg/dl (7-17) H 10/19/24 06:22
Creatinine 0.7 mg/dL (0.6-1.0) 10/19/24 06:22
Calcium 9.1 mg/dl (8.4-10.2) 10/19/24 06:22
Total Bilirubin 0.4 mg/dl (0.2-1.3) 10/14/24 07:51
AST 23 U/L (14-36) 10/14/24 07:51
ALT 17 U/L (0-35) 10/14/24 07:51
Alkaline Phosphatase 93 U/L (38-126) 10/14/24 07:51
Diagnostic Image Results:
CT neck angio with and without contrast 10/16/2024:
IMPRESSION:
1). During the course of the examination, there was no active hemorrhage.
2).There is a 2.5 cm spiculated area of parenchymal airspace disease in the right upper lobe which may be inflammatory or malignant and which, if clinically indicated, could be further evaluated with PET scan
3).Above the level of the tracheotomy tube, the cervical trachea, larynx and hypopharynx are collapsed in this patient with known laryngeal carcinoma. Additionally, are surgical clips in the neck bilaterally and loss of fat planes in the neck
consistent with postoperative and probable post radiation changes. Given the lack of soft tissue differentiation, evaluation for recurrent or residual neoplasm could be best accomplished with PET scan
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
5). Partially calcific atherosclerotic plaque at the left carotid bifurcation and origin of the left internal carotid arteries associated with near 50% stenosis
6). Partially calcific atherosclerotic plaque at the right carotid bifurcation and origin of the right internal carotid artery is associated with less than 50% stenosis
7). Partially calcific atherosclerotic plaque at the cavernous and supraclinoid portions of both internal carotid arteries is associated with near 50% stenosis.
8). There is right maxillary sinusitis
Soft tissue neck x-ray 10/14/2024:Postoperative changes of the neck from known laryngeal cancer. No prior imaging of the neck is currently available for direct comparison.
Right upper lobe opacity suspicious for mild pneumonia in the appropriate clinical setting.
Chest x-ray 10/14/2024:
IMPRESSION:
Postoperative changes of the neck from known laryngeal cancer. No prior imaging of the neck is currently available for direct comparison.
Right upper lobe opacity suspicious for mild pneumonia in the appropriate clinical setting.
Prior GI Procedures:
EGD: 'Years ago'
Colonoscopy: Couple years ago, with Dr. Patel. Records unavailable to me
Assessment / Plan
-
73-year-old female with past medical history of laryngeal cancer status post laryngectomy in May at [facility] who just completed 30 rounds of radiation 3 weeks ago, atrial fibrillation, COPD, pancreatic insufficiency, vascular
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 She presented to the
emergency room on 10/14/2024. Today we are asked to see her for dysphagia.
Impression:
Dysphagia
---Multifactorial likely secondary to laryngeal radiation, possible Iris Esophagitis, tracheitis, pill induced esophagitis, possible esophageal dysmotility
---Has GJ tube. Was only using J-tube for feeds given the fact that she was told she had 'bariatric motility issues' By [facility].
Acute hypoxic respiratory insufficiency secondary to suspected aspiration pneumonia
Laryngeal cancer status post laryngectomy and radiation, last treatment 3 weeks ago
Rapid response Hospital day 3 for progressive dyspnea and dried blood blocking stoma unclear source requiring placement of trach
Diarrhea initially, Day prior to arrival. Then returned yesterday. Now without any further symptoms
Plan:
Continue nystatin
Continue Prevacid via G-tube
Magic mouthwash as needed
Continue tube feeds via J-tube
Follow-up with Dr. Patel or [facility]. Discussed with patient and son as outpatient
Diet as per CEMENT PATCHER recommendations only, would not advance.
-
-
Thank you for consultation and allowing me to participate in the patient's care. Please call the correspondence school teacher GI physician during the after hours with any questions or concerns.
[2024-10-19] MEDS: PLAVIX 75 MG TUBE (17:11)
[2024-10-19 18:54] VITALS: BP 131/58
[2024-10-19] MEDS: NSS (PRESERVATIVE FREE) 0.25 ML IV (22:32)
[2024-10-19] MEDS: ATIVAN 0.5 MG IV (22:33)
[2024-10-19 23:18] VITALS: BP 130/63
[2024-10-20] MEDS: ANCEF 10 IV ×3 (02:30→17:03)
[2024-10-20 02:49] VITALS: BP 141/69
[2024-10-20 05:43] VITALS: BMI 21.3
[2024-10-20 06:51] LABS: Hematocrit 34.1 % (37.0-47.0); Mean Corp Hgb Conc. 32.3 g/dL (33.0-37.0); Mean Corpuscular Hgb 29.5 pg (27.0-31.0); Mean Corpuscular Volume 91.4 fL (81.0-99.0); Mean Platelet Volume 12.5 fL (7.4-10.4); Platelet Count 204 10^3/uL (130-400); Red Blood Cell Count 3.73 10^6/uL (4.20-5.40); Red Cell Dist. Width 14.9 % (11.5-14.5); White Blood Cell Count 4.6 10^3/uL (4.8-10.8)
[2024-10-20 07:16] LABS: Blood Urea Nitrogen 28 mg/dl (7-17); Calcium 8.8 mg/dl (8.4-10.2); Carbon Dioxide 25 mmol/L (22-30); Chloride 103 mmol/L (98-107); Estimated Creatinine Clearance 54 ml/min; Glucose 99 mg/dl (70-99); Magnesium 2.2 mg/dl (1.6-2.3); Phosphorus 3.4 mg/dl (2.5-4.5); Potassium 4.2 mmol/L (3.5-5.1); Sodium 138 mmol/L (135-145); eGFR > 60.00
--- NOTE | 2024-10-20 07:25 | W.PN.HOSP.TC ---
Today's Communication/Plan
-
Discontinued Shiley tube
cont humidified air treatments
abx
steroid taper
Nystatin swish and swallow, magic mouthwash prn
Likely discharge tomorrow if remains stable/continues to improve
Assessment / Plan
Assessment / Plan
Physical Exam
General: No Apparent Distress
HEENT: NormoCephalic, Anicteric, Moist mucous membranes, Open tracheostomy stoma
Respiratory: Clear
Cardiac: S1/S2 and Regular Rhythm
GI: Soft, Non Tender, Non Distended, G-J tube present
Musculoskeletal: No Clubbing, No Cyanosis and No Edema
Skin: Warm and Dry
Neuro: Awake, Alert and Oriented
Psych: Calm
HPI: 73-year-old female with a past history of atrial fibrillation, COPD, pancreatic insufficiency, and laryngeal cancer status post laryngectomy & radiation presents with a 2-day history of shortness of breath and dysphagia. Although patient has a
G-J tube, she does eat a chopped diet. 2 days ago she started having problems swallowing her food and pills. She has shortness of breath with lying down. She is coughing, bringing up blood from her trach site. Denies nausea, vomiting, abdominal
pain. No fever, no chest pain. No abdominal pain. No dysuria. No black or bloody stools. She is followed by the [facility], Dr. Gianluca Mckeon is her surgeon. She last had radiation 3 weeks ago and completed treatment.
#Acute hypoxic respiratory insufficiency
#Pneumonia, suspect aspiration
COVID and flu negative
Status post levofloxacin in the ED
weaned off oxygen supplementation, stable respiratory status on room air
sputum cx appreciated MSSA
ID eval appreciated ceftriaxone flagyll narrowed to cefazolin patient to transition to cephalexin 500 mg QID on discharge to complete 10-14 days abx
Home oxygen assessment appreciated no oxygen needs 10/19/24
#Dysphagia
#Oral Thrush, likely Esophageal Candidiasis contributing to dysphagia
Cleared by [facility] for pur�ed diet with thin liquids, patient tolerating
tube feeds placed on hold per patient request d/t diarrhea
speech VSE eval appreciated concern for esophageal dysphagia
GI eval appreciated esophageal dysphagia likely d/t esophageal candidiasis started on nystatin swish and prn magic mouthwash, cont
#Laryngeal cancer status post laryngectomy and radiation treatment 3 weeks ago
#Mild bleeding from trach stoma initally
#[facility] Response Hospital day 3 progressive dyspnea dried blood blocking stoma unclear source
Followed by the [facility], Dr. Gianluca Mckeon is her surgeon
Status post IV dexamethasone in the ER
IV Decadron 4mg Q6H gradually tapered to Prednisone
consult wound care appreciated
consult ENT appreciated significant amount of dried blood was cleared, unclear source of bleeding, possibly pulmonary from pneumonia or tracheal wall, recommended for transfer back to [facility] higher level of care known to ENT surgeons there, accepted
by Dr Ramos (Dr. Gianluca Mckeon's partner)
CT angio Neck appreciated no active hemorrhage
Shiley trach tube placed by ENT to keep stoma patent in case of bleeding
Morphine 2mg IV Q4H prn for coughing/irritation from trach tube Ativan IV prn anxiety sleep
*Patient since improved, persistently stable, per ENT Dr Harrison discussion with [facility], no need to transfer at this time, patient to pursue follow up when medically stable for discharge
*10/20/24 discussed with [facility] Dr Gianluca Mckeon patient's clinical progress, given overall stability and improvement, it was recommended that the tube be removed, no longer necessary at this time. Tube was removed accordingly without issues
#Paroxysmal atrial fibrillation
Continue Plavix, metoprolol tartrate 25 mg twice a day
#Chronic heart failure, unknown type
Holding Lasix for now secondary to dysphagia/diarrhea weight loss
Home Aldactone resumed with holding parameters
#Diarrhea likely 2/2 tube feeds
immodium prn
Tube feeds placed on hold per pt requests, tolerating pureed diet
neg norovirus cdiff
#Chronic Pancreatic Insufficiency
Creon resumed
#Elevated troponin
chest pain free
likely nonischemic myocardial injury from pneumonia and hypoxia
troponin trended flat 0.081
#GERD
Continue PPI
#COPD
Continue home bronchodilators
#Anxiety/depression
Continue SSRI
DVT prophylaxis SCD
DNR
Discussed with patient and patient's son Satnam.
Total time spent to see the patient on the floor, examine the patient, review data and lab results, discuss treatment plan with patient, nursing staff around 40 minutes.
Anticipated Discharge: Within 24 hours
Subjective/Interval History
-
Date of Service: October 20, 2024
reports some improvement in swallowing. Diarrhea resolving. Notes significant improvement in comfort following removal of Shiley tube.
Objective Data
-
Labs:
Laboratory Results
10/20/24
06:02
WBC 4.6 L
Hgb 11.0 L
Hct 34.1 L
Plt Count 204
Sodium 138
Potassium 4.2
Chloride 103
Carbon Dioxide 25
BUN 28 H
Creatinine 0.7
Glucose 99
Calcium 8.8
Vital Signs:
Vital Signs
Temp Pulse Resp BP Pulse Ox
98.0 F 62 16 141/69 97
10/20/24 02:49 10/20/24 02:49 10/20/24 02:49 10/20/24 02:49 10/20/24 02:49
I&O
10/19/24 10/20/24 10/21/24
06:59 06:59 06:59
Intake Total 750 / 750 600 / 600
Balance 750 / 750 600 / 600
[2024-10-20 07:29] VITALS: BP 145/65
[2024-10-20] MEDS: ZYLOPRIM 100 MG TUBE (08:04)
[2024-10-20] MEDS: DECADRON 4 MG IV (08:04)
[2024-10-20] MEDS: ZOLOFT 50 MG TUBE (08:05)
[2024-10-20] MEDS: ROBITUSSIN 200 MG TUBE ×4 (08:06→22:10)
[2024-10-20] MEDS: MYCOSTATIN ORAL SUSPENSION 5 ML PO ×4 (08:06→22:10)
[2024-10-20] MEDS: MAGIC OR MIRACLE MOUTHWASH 5 ML PO (08:06)
[2024-10-20] MEDS: ALDACTONE 25 MG PO (08:06)
[2024-10-20] MEDS: LOPRESSOR 25 MG TUBE ×2 (08:07→22:09)
[2024-10-20] MEDS: PLAQUENIL 200 MG PO ×2 (08:07→22:10)
[2024-10-20] MEDS: PREVACID 30 MG TUBE (08:20)
[2024-10-20] MEDS: DESENEX/MITRAZOL/ZEASORB 1 APPLIC TOPICAL ×2 (08:21→22:10)
--- NOTE | 2024-10-20 09:36 | W.PN.GI.CBS2 ---
Today's Communication / Plan
-
Diarrhea improving. Continue dietary recommendations per speech, would not advance. No plans for EGD as an inpatient. Outpatient f/u with Dr. Voss. GI will sign off, please call with questions.
Assessment / Plan
-
73-year-old female with past medical history of laryngeal cancer status post laryngectomy in May at [facility] who just completed 30 rounds of radiation 3 weeks ago, atrial fibrillation, COPD, pancreatic insufficiency, vascular
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 She presented to the
emergency room on 10/14/2024. GI consulted for dysphagia and diarrhea
Impression:
Dysphagia
---Multifactorial likely secondary to laryngeal radiation, possible Iris Esophagitis, tracheitis, pill induced esophagitis, possible esophageal dysmotility
---Has GJ tube. Was only using J-tube for feeds given the fact that she was told she had 'bariatric motility issues' By [facility].
Acute hypoxic respiratory insufficiency secondary to suspected aspiration pneumonia
Laryngeal cancer status post laryngectomy and radiation, last treatment 3 weeks ago
Rapid response Hospital day 3 for progressive dyspnea and dried blood blocking stoma unclear source requiring placement of trach
Diarrhea initially, Day prior to arrival. Then returned yesterday. Now without any further symptoms-- only 1 episode in last day.
Plan:
Continue nystatin
Continue Prevacid via G-tube
Magic mouthwash as needed
Continue tube feeds via J-tube
Follow-up with Dr. Patel or [facility].
Diet as per HORSE GROOMER recommendations only, would not advance.
Subjective
Subjective
Date of Service: October 20, 2024
Patient seen in follow-up. Diarrhea improving, one episode in the last day per patient.
Objective
Data Reviewed
Laboratory Data:
Laboratory Results
10/20/24 06:02
10/20/24 06:02
Laboratory Results
Phosphorus 3.4 mg/dl (2.5-4.5) 10/20/24 06:02
Magnesium 2.2 mg/dl (1.6-2.3) 10/20/24 06:02
Total Bilirubin 0.4 mg/dl (0.2-1.3) 10/14/24 07:51
AST 23 U/L (14-36) 10/14/24 07:51
ALT 17 U/L (0-35) 10/14/24 07:51
Alkaline Phosphatase 93 U/L (38-126) 10/14/24 07:51
Vital Signs and I&O:
Vital Signs
Temp Pulse Resp BP Pulse Ox
98.1 F 63 16 145/65 98
10/20/24 07:29 10/20/24 08:06 10/20/24 07:29 10/20/24 08:06 10/20/24 07:29
I&O
10/19/24 10/20/24 10/21/24
06:59 06:59 06:59
Intake Total 750 / 750 600 / 600
Balance 750 / 750 600 / 600
Physical Exam
Physical Exam
GI: Soft, Non Distended, Non Tender and Other (+GJ tube in place)
[2024-10-20 11:05] VITALS: BP 125/59
[2024-10-20] MEDS: ZENPEP DELAYED RELEASE CAPSULE 1 CAPSULE PO ×3 (12:06→22:09)
--- NOTE | 2024-10-20 12:53 | W.PN.UPDATE ---
Update Note
Progress Note Update
Patient's case discussed with Dr. Gianluca Mckeon, patient's ENT at [facility], given overall stability and improvement, it was recommended that the tube be removed, no longer necessary at this time.
--- NOTE | 2024-10-20 13:33 | RESPNOTE ---
pt's Trach was removed by Dr. Mckeon. pt is still on a 28% trach collar for humidification.
--- NOTE | 2024-10-20 13:40 | PTCARENOTE ---
Dr Mckeon removed trach tube bedside. Pt still on 28% humidified O2
[2024-10-20 15:00] VITALS: BP 115/55
[2024-10-20] MEDS: PLAVIX 75 MG TUBE (17:03)
[2024-10-20] MEDS: ATIVAN 0.5 MG IV (22:16)
[2024-10-20 23:13] VITALS: BP 129/67
[2024-10-21] MEDS: ANCEF 10 IV ×2 (02:14→08:48)
[2024-10-21 05:37] VITALS: BMI 21.4
--- NOTE | 2024-10-21 06:53 | W.PN.HOSP.TC ---
Today's Communication/Plan
-
discharge
Assessment / Plan
Assessment / Plan
Physical Exam
General: No Apparent Distress
HEENT: NormoCephalic, Anicteric, Moist mucous membranes, Open tracheostomy stoma
Respiratory: Clear
Cardiac: S1/S2 and Regular Rhythm
GI: Soft, Non Tender, Non Distended, G-J tube present
Musculoskeletal: No Clubbing, No Cyanosis and No Edema
Skin: Warm and Dry
Neuro: Awake, Alert and Oriented
Psych: Calm
HPI: 73-year-old female with a past history of atrial fibrillation, COPD, pancreatic insufficiency, and laryngeal cancer status post laryngectomy & radiation presents with a 2-day history of shortness of breath and dysphagia. Although patient has a
G-J tube, she does eat a chopped diet. 2 days ago she started having problems swallowing her food and pills. She has shortness of breath with lying down. She is coughing, bringing up blood from her trach site. Denies nausea, vomiting, abdominal
pain. No fever, no chest pain. No abdominal pain. No dysuria. No black or bloody stools. She is followed by the [facility], Dr. Gianluca Mckeon is her surgeon. She last had radiation 3 weeks ago and completed treatment.
#Acute hypoxic respiratory insufficiency
#Pneumonia, suspect aspiration
COVID and flu negative
Status post levofloxacin in the ED
weaned off oxygen supplementation, stable respiratory status on room air
sputum cx appreciated MSSA
ID eval appreciated ceftriaxone flagyll narrowed to cefazolin patient to transition to cephalexin 500 mg QID on discharge to complete 14 days abx (10/27 last day of antibiotics)
Home oxygen assessment appreciated no oxygen needs 10/19/24
#Dysphagia
#Oral Thrush, likely Esophageal Candidiasis contributing to dysphagia
Cleared by [facility] for pur�ed diet with thin liquids, patient tolerating
tube feeds placed on hold per patient request d/t diarrhea
speech VSE eval appreciated concern for esophageal dysphagia
GI eval appreciated esophageal dysphagia likely d/t esophageal candidiasis started on nystatin swish, cont- also started on magic mouthwash prn but has not required
#Laryngeal cancer status post laryngectomy and radiation treatment 3 weeks ago
#Mild bleeding from trach stoma initially
#Rapid Response Hospital day 3 progressive dyspnea dried blood blocking stoma unclear source
Followed by the [facility], Dr. Gianluca Mckeon is her surgeon
Status post IV dexamethasone in the ER
IV Decadron 4mg Q6H gradually tapered to Prednisone
consult wound care appreciated
consult ENT appreciated significant amount of dried blood was cleared, unclear source of bleeding, possibly pulmonary from pneumonia or tracheal wall, recommended for transfer back to [facility] level of care known to ENT surgeons there, accepted
by Dr Ramos (Dr. Gianluca Mckeon's partner)
CT angio Neck appreciated no active hemorrhage
Shiley trach tube placed by ENT to keep stoma patent in case of further bleeding
Morphine 2mg IV Q4H prn for coughing/irritation from trach tube Ativan IV prn anxiety sleep
*Patient since improved, persistently stable, per ENT Dr Harrison discussion with [facility], no need to transfer at this time, patient to pursue follow up when medically stable for discharge
*10/20/24 discussed with [facility] Dr Gianluca Mckeon patient's clinical progress, given overall stability and improvement, it was recommended that the tube be removed, no longer necessary at this time. Tube was removed accordingly without issues.
Patient has remained stable without.
#Paroxysmal atrial fibrillation
Continue Plavix, metoprolol tartrate 25 mg twice a day
#Chronic heart failure, unknown type
Holding Lasix for now secondary to dysphagia/diarrhea weight loss, since improved, ok to resume on discharge
Home Aldactone resumed with holding parameters
#Diarrhea likely 2/2 tube feeds
immodium prn
Tube feeds placed on hold per pt requests, tolerating pureed diet
neg norovirus cdiff
#Chronic Pancreatic Insufficiency
Creon resumed
#Elevated troponin
chest pain free
likely nonischemic myocardial injury from pneumonia and hypoxia
troponin trended flat 0.081
#GERD
Continue PPI
#COPD
Continue home bronchodilators
#Anxiety/depression
Continue SSRI
DVT prophylaxis SCD
DNR
Medically stable for discharge home with outpatient follow up recommendations.
Discussed with patient and patient's son Satnam.
Total Time Preparing Discharge ___40____ minutes including examination of the patient, summary of the hospital stay, instructions for continuing care to all relevant caregivers; and preparation of discharge records, prescriptions, and referral
forms if necessary.
Anticipated Discharge: Today
Subjective/Interval History
-
Date of Service: October 21, 2024
Seen and examined at bedside in no acute distress sitting up comfortably in bed. Overall reports feeling well. Improvement in cough, diarrhea, and dysphagia noted. Denies new acute issues. Eager to go home.
Objective Data
-
Vital Signs:
Vital Signs
Temp Pulse Resp BP Pulse Ox
97.7 F 72 16 129/67 100
10/20/24 23:13 10/20/24 23:13 10/20/24 23:13 10/20/24 23:13 10/20/24 23:13
I&O
10/19/24 10/20/24 10/21/24
06:59 06:59 06:59
Intake Total 750 / 750 600 / 600 480 / 480
Balance 750 / 750 600 / 600 480 / 480
[2024-10-21 08:00] VITALS: BP 137/67
[2024-10-21] MEDS: ZYLOPRIM 100 MG TUBE (08:43)
[2024-10-21] MEDS: ZOLOFT 50 MG TUBE (08:43)
[2024-10-21] MEDS: PREVACID 30 MG TUBE (08:43)
[2024-10-21] MEDS: ALDACTONE 25 MG PO (08:43)
[2024-10-21] MEDS: DELTASONE 40 MG PO (08:43)
[2024-10-21] MEDS: MYCOSTATIN ORAL SUSPENSION 5 ML PO ×2 (08:44→12:02)
[2024-10-21] MEDS: ZENPEP DELAYED RELEASE CAPSULE 1 CAPSULE PO ×2 (08:44→12:02)
[2024-10-21] MEDS: DESENEX/MITRAZOL/ZEASORB 1 APPLIC TOPICAL (08:44)
[2024-10-21] MEDS: ROBITUSSIN 200 MG TUBE ×2 (08:44→12:02)
[2024-10-21] MEDS: PLAQUENIL 200 MG PO (08:44)
[2024-10-21] MEDS: LOPRESSOR 25 MG TUBE (08:44)
--- NOTE | 2024-10-21 08:49 | CM ---
CM reviewed chart. Pt from home w/family, active with [facility] [employer]-referral sent.
Trach dc'd by Respiratory on 10/20/24.
AREA SAFETY MANAGER monitoring new diet.
GI signed off.
CM/SW will continue to follow to ensure a safe and timely discharge.
[2024-10-21] MEDS: KEFLEX 500 MG PO (13:40)
--- NOTE | 2024-10-21 14:29 | W.DCSUMMARY ---
Discharge Summary
Discharge Data
Date of Admission: 10/14/24
Date of Discharge: 10/21/24
-
Pending Results: No
Discharge Plan
-
Patient Disposition: Home (Routine Discharge)
Discharge Diagnosis/Procedures: Acute hypoxic respiratory insufficiency- resolved
Pneumonia
Oral Thrush, likely Esophageal Candidiasis contributing to dysphagia, possible underlying esophageal dysmotility
Laryngeal cancer status post laryngectomy status post radiation treatment
Tracheal Bleeding unclear etiology since resolved
Condition: Fair
Diet: Other diet
Additional Diets: Pureed Diet. Follow up with your GI specialist for further diet advancement recommendations
Activity: As tolerated
Driving Restrictions: As prior to admission
Bathing Restrictions: None
Activity Restrictions/Additional Instructions:
10/15/24 Protective silicone border foam applied, remove by 10/18/24.
Red skin around feeding tube-clean with saline or soap and water, apply antifungal powder twice a day, can add no sting barrier wipe or barrier ointment on top for skin protection.
Change 1 ply drainage sponge around feeding tube daily and as needed for drianage.
Elevate heels off bed with pillow.
Pressure redistributing chair cushion (i.e. Air chair cushion).
Please keep your appointment with [facility], follow up with primary care provider in 1 week of discharge, and your GI doctor in 1-2 weeks of discharge.
Keflex has been prescribed for pneumonia to continue through 10/27/24 then stop.
Nystatin swish and swallow has been prescribed for oral thrush and likely esophageal candidiasis contributing to Dysphagia. Continue with Nystatin through 10/28/24 then stop. If dysphagia persists in spite of treatment, please follow up with your
GI doctor and/or primary care provider for further evaluation/treatment.
Robitussin has been prescribed as needed for cough.
A short Prednisone taper has been prescribed for Tracheitis: 30 mg day 1, then 20 mg day 2, then 10 mg day 3, then stop.
Please take medications as prescribed/recommended and follow up with primary care provider and/or other healthcare provider involved in your care for refills and/or further adjustment to your medication regimen as necessary.
Referrals:
Erick Schwarz MD [Family Provider] - in one week
Prescriptions:
New
prednisone 10 mg Tablet
10 mg PO DIRECTED Qty: 6 0RF
Rx Instructions:
30 mg day 1, then 20 mg day 2, then 10 mg day 3, then stop
cephalexin 500 mg Capsule
500 mg PO QID Qty: 26 0RF
Rx Instructions:
Continue through 10/27/24 then stop.
nystatin 100,000 unit/mL Suspension
5 ml PO QID 7 Days Qty: 250 0RF
Rx Instructions:
Continue through 10/28/24 then stop
guaifenesin 100 mg/5 mL Liquid
200 mg feeding tube QID PRN (Reason: Cough) Qty: 500 0RF
Continued
clopidogrel [Plavix] 75 mg Tablet
75 mg PO QPM
allopurinol 100 mg Tablet
100 mg PO DAILY
lansoprazole 15 mg Capsule,Delayed Release(Dr/Ec)
30 mg feeding tube DAILY
sertraline 25 mg Tablet
50 mg PO DAILY
budesonide 0.5 mg/2 mL Suspension For Nebulization
0.5 mg INHALATION R BIDPRN PRN (Reason: sob)
furosemide [Lasix] 20 mg Tablet
20 mg PO DAILY
hydroxychloroquine [Plaquenil] 200 mg Tablet
200 mg PO BID
food supplemt, lactose-reduced Liquid
1 ea PO QPM
Yupelri 175 mcg/3 mL Solution For Nebulization
175 mcg INHALATION R DAILYPRN PRN (Reason: sob)
spironolactone 25 mg Tablet
25 mg PO DAILY
metoprolol tartrate 25 mg Tablet
25 mg PO BID
Discharge Orders:
Discharge Patient (As Directed); Ordered 10/21/24
Ordered By: aDrio Mckeon
Discharge Date and Time
Print Language: [place] ISLAND[place]
[2024-10-21 15:00] VITALS: BP 137/54
== END 2024-10-21 15:18 | disposition home or self-care (01) | DRG 205 ==
LOC: 2 NORTH 12:02
PROVIDERS: Nurse Practitioner; ADMITTING PHYSICIAN Family Medicine; ATTENDING PHYSICIAN Internal Medicine; CONSULT PHYSICIAN Internal Medicine; CONSULT PHYSICIAN Internal Medicine Infectious Disease; CONSULT PHYSICIAN Otolaryngology; EMERGENCY PHYSICIAN Emergency Medicine; FAMILY PHYSICIAN Internal Medicine
DX: J95.03 Malfunction of tracheostomy stoma (principal); J69.0 Pneumonitis due to inhalation of food and vomit; B37.81 Candidal esophagitis; B37.0 Candidal stomatitis; J44.0 Chronic obstructive pulmonary disease with (acute) lower respiratory infection; I5A Non-ischemic myocardial injury (non-traumatic); R09.02 Hypoxemia; Z92.3 Personal history of irradiation; I48.0 Paroxysmal atrial fibrillation; K86.89 Other specified diseases of pancreas; I50.9 Heart failure, unspecified; Z95.0 Presence of cardiac pacemaker; Z87.891 Personal history of nicotine dependence; Z91.040 Latex allergy status; Z88.0 Allergy status to penicillin; Z79.02 Long term (current) use of antithrombotics/antiplatelets; K21.9 Gastro-esophageal reflux disease without esophagitis; F32.A Depression, unspecified; F41.9 Anxiety disorder, unspecified; Z66 Do not resuscitate; Z85.118 Personal history of other malignant neoplasm of bronchus and lung; J32.0 Chronic maxillary sinusitis; I65.23 Occlusion and stenosis of bilateral carotid arteries; C32.9 Malignant neoplasm of larynx, unspecified; Z11.52 Encounter for screening for COVID-19
CPT/HCPCS: 70360; 70498; 71046; 74230; 80048; 80053; 83735; 83880; 84100; 84484; 85025; 85027; 87070; 87147; 87186; 87205; 87324; 87449; 87502; 87798; 87811; 87899; 92526; 92610; 92611; 93005; 94640; 96374; 96375; 99285; Q9967